=== PATIENT | male | born 1940 | race Caucasian/White ===

== ENCOUNTER 2016-12-28 15:32 | Emergency (ER) | payer OTHER ==
[2016-12-28 15:37] VITALS: BP 188/78; PULSE 85; TEMP 97.8; BMI 26.9
[2016-12-28] MEDS ORDERED: IBUPROFEN 600 MG TABLET (FP) PO ONE (16:16)
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
== END 2016-12-28 16:28 | disposition home or self-care (01) ==
LOC: JERFT 15:32
DX: S13.4XXA Sprain of ligaments of cervical spine, initial encounter (principal); S16.1XXA Strain of muscle, fascia and tendon at neck level, initial encounter; V43.52XA Car driver injured in collision with other type car in traffic accident, initial encounter; Y92.411 Interstate highway as the place of occurrence of the external cause; Y93.89 Activity, other specified; Y99.9 Unspecified external cause status; I10 Essential (primary) hypertension; E11.9 Type 2 diabetes mellitus without complications
CPT/HCPCS: 99281-25

== ENCOUNTER 2016-12-31 11:56 | Emergency (ER) | payer OTHER ==
[2016-12-31 12:01] VITALS: BP 182/75; PULSE 62; TEMP 97.7; BMI 26.9
[2016-12-31] MEDS ORDERED: KETOROLAC TROMETHAMINE 60 MG/2 ML VIAL IM ONE (12:26)
[2016-12-31] MEDS ORDERED: CYCLOBENZAPRINE HCL 10 MG TABLET (FP) PO ONE (12:29)
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
== END 2016-12-31 12:44 | disposition home or self-care (01) ==
LOC: JERFT 11:56
PROC: 3E0233Z Introduction of Anti-inflammatory into Muscle, Percutaneous Approach (ICD-10-PCS; principal; 2016-12-31)
DX: S13.4XXA Sprain of ligaments of cervical spine, initial encounter (principal); V43.52XA Car driver injured in collision with other type car in traffic accident, initial encounter; Y93.89 Activity, other specified; Y92.9 Unspecified place or not applicable; E11.9 Type 2 diabetes mellitus without complications; I10 Essential (primary) hypertension; E78.00 Pure hypercholesterolemia, unspecified
CPT/HCPCS: 99281-25

== ENCOUNTER 2018-06-26 09:55 | Inpatient (IN) | payer OTHER ==
[2018-06-26 10:00] VITALS: BMI 27.2
--- NOTE | 2018-06-26 10:17 | PDOC ---
History of Present Illness - General Chief Complaint: Weakness Stated Complaint: CVA/TIA Time Seen by Provider: 06/26/18 10:13 History Source: Patient, Family - History of Present Illness Initial Comments: 06/26/18 10:17 Patient is a 77-year-old male with past medical history of hypertension, hyperlipidemia, [id number] diabetes, who presents to the emergency department today after having an episode of weakness. Family states that around 8 AM he slurred his words and was having trouble buttoning his shirt with his left side. They also noticed that the patient was unsteady on his feet. They state that since arriving to the ER his symptoms have resolved. No past medical history of CVA. Patient states he still feels a little weak; however, overall he feels better. Denies fevers, chills, shortness of breath, chest pain, flulike symptoms, difficulty breathing, palpitations, nausea, vomiting, diarrhea , numbness, paresthesias. PCP: Dr. Tipton NIH Stroke Scale - Last Known Well Date/Time & Onset Date Last Known Well: 06/26/18 Time Last Known Well: 08:00 - Initial Evaluation Level of consciousness: Alert Ask patient the month and their age: Answers both correctly Ask patient to open & close eyes; make fist and let go: Obeys both correctly Best gaze (horizontal eye movement): Normal Visual field testing: No visual field loss Facial paresis (Show teeth/raise eyebrows/close eyes tight): Normal symmetrical movement Motor Function: Left Arm: Normal Motor Function: Right Arm: Normal (extends arm 90 (or 45) degrees for 10 seconds without drift Motor Function: Left Leg: Normal (extends leg 30 degrees for 5 seconds without drift) Motor Function: Right Leg: Normal (extends leg 30 degrees for 5 seconds without drift) Limb Ataxia: No ataxia Sensory(Use pinprick test arms,legs,trunk,face/side to side): Normal Best language (Describe picture, name items, read sentences): No Aphasia Dysarthria (read several words): Normal articulation Extinction and Inattention: No abnormality - Total Score NIH Stroke Scale Score: 0 Past History - Past Medical History Allergies/Adverse Reactions: Allergies Allergy/AdvReac Type Severity Reaction Status Date / Time No Known Allergies Allergy Verified 06/26/18 10:00 Home Medications: Ambulatory Orders Cyclobenzaprine HCl [Flexeril 10 mg] 10 mg PO BID PRN #14 tablet 12/31/16 COPD: No Diabetes: Yes HTN: Yes Hypercholesterolemia: Yes - Surgical History Abdominal Surgery: Yes (HERNIA) Appendectomy: Yes - Suicide/Smoking/Psychosocial Hx Smoking History: Never smoked Hx Alcohol Use: No Drug/Substance Use Hx: No Substance Use Type: None Review of Systems - Review of Systems Able to Perform ROS?: Yes Comments:: 06/26/18 14:44 CONSTITUTIONAL: Absent: fever, chills, diaphoresis, generalized weakness, malaise, loss of appetite HEENT: Absent: rhinorrhea, nasal congestion, throat pain, throat swelling, difficulty swallowing, mouth swelling, ear pain, eye pain, visual Changes CARDIOVASCULAR: Absent: chest pain, loss of consciousness, palpitations, irregular heart rate, peripheral edema RESPIRATORY: Absent: cough, shortness of breath, dyspnea with exertion, orthopnea, wheezing, stridor, hemoptysis GASTROINTESTINAL: Absent: abdominal pain, abdominal distension, nausea, vomiting, diarrhea, constipation, melena, hematochezia GENITOURINARY: Absent: dysuria, frequency, urgency, hesitancy, hematuria, flank pain, genital pain MUSCULOSKELETAL: Absent: myalgia, arthralgia, joint swelling SKIN: Absent: rash, itching, pallor HEMATOLOGIC/IMMUNOLOGIC: Absent: easy bleeding, easy bruising, lymphadenopathy, frequent infections ENDOCRINE: Absent: unexplained weight gain, unexplained weight loss, heat intolerance, cold intolerance NEUROLOGIC: Present: weakness Absent: headache, focal weakness or paresthesias, dizziness, unsteady gait, seizure, mental status changes, bladder or bowel incontinence PSYCHIATRIC: Absent: anxiety, depression, suicidal or homicidal ideation, hallucinations. Is the patient limited Burkinan proficient: No *Physical Exam - Vital Signs Last Vital Signs Temp Pulse Resp BP Pulse Ox 97.6 F 73 18 217/71 H 06/26/18 09:58 06/26/18 09:58 06/26/18 09:58 06/26/18 09:58 - Physical Exam Comments: 06/26/18 14:45 GENERAL: Well developed, well nourished. Awake and alert. No acute distress. HEENT: Normocephalic, atraumatic. PERRLA, EOMI. No conjunctival pallor. Sclera are non- icteric. Moist mucous membranes. Oropharynx is clear. NECK: Supple. Full ROM. No JVD. Carotid pulses 2+ and symmetric, without bruits. No thyromegaly. No lymphadenopathy. CARDIOVASCULAR: Regular rate and rhythm. No murmurs, rubs, or gallops. Distal pulses are 2+ and symmetric. PULMONARY: No evidence of respiratory distress. Lungs clear to auscultation bilaterally. No wheezing, rales or rhonchi. ABDOMINAL: Soft. Non-tender. Non-distended. No rebound or guarding. No organomegaly. Normoactive bowel sounds. MUSCULOSKELETAL Normal range of motion at all joints. No bony deformities or tenderness. No CVA tenderness. EXTREMITIES: No cyanosis. No clubbing. No edema. No calf tenderness. SKIN: Warm and dry. Normal capillary refill. No rashes. No jaundice. NEUROLOGICAL: Alert, awake, appropriate. Cranial nerves 2-12 intact. No deficits to light touch and temperature in face, upper extremities and lower extremities. No motor deficits in the in face, upper extremities and lower extremities. Normoreflexic in the upper and lower extremities. Normal speech. Toes are down- going bilaterally. Gait is normal without ataxia. PSYCHIATRIC: Cooperative. Good eye contact. Appropriate mood and affect. Moderate Sedation - Procedure Monitoring Vital Signs: Procedure Monitoring Vital Signs Temperature 97.6 F 06/26/18 09:58 Pulse Rate 73 06/26/18 09:58 Respiratory Rate 18 06/26/18 09:58 Blood Pressure 217/71 H 06/26/18 09:58 O2 Sat by Pulse Oximetry (%) ED Treatment Course - LABORATORY CBC & Chemistry Diagram: 06/26/18 10:20 06/26/18 10:20 Medical Decision Making - Medical Decision Making 06/26/18 14:53 Pt is a 77 y/o M with PMH of HTN, HLD, NIDDM, who presents to the ED with an episode of slurred speech and L sided weakness this morning. Triage vitals notable for a BP of 217/70. -On exam, no focal deficits; pt c/o headache otherwise asymptomatic -NIH stroke scale at this time is a 0 -Head CT shows no ischemia or bleed -H&H stable, no leukocytosis, troponin negative at this time -EKG: rate 69 BPM, NSR. Normal axis, normal intervals, ST elevation in lead II -Repeat BP 135/75 after labetolol -Given HPI and resolution of symptoms, suspect TIA -Admit for further stroke work up *DC/Admit/Observation/Transfer Diagnosis at time of Disposition: TIA (transient ischemic attack) - Discharge Dispostion Condition at time of disposition: Stable Decision to Admit order: Yes - Referrals - Patient Instructions - Post Discharge Activity
[2018-06-26] MEDS ORDERED: LABETALOL HCL 5 MG/1 ML (100MG/20 ML VIAL) IVPUSH ONE (10:23)
[2018-06-26] MEDS: SODIUM CHLORIDE 1,000 ML IV SCH (10:26)
[2018-06-26] MEDS ORDERED: LABETALOL HCL 5 MG/1 ML (100MG/20 ML VIAL) ONE (10:27)
[2018-06-26 11:10] LABS: BASO % 0.4 % (0-2.0); EOS % 0.4 % (0-4.5); HEMOGLOBIN 15.5 GM/dL (11.7-16.9); LYMPH % 40.3 % (8-40); MCH 31.8 pg (25.7-33.7); MCHC 35.2 g/dl (32.0-35.9); MEAN CELL VOLUME 90.4 fl (80-96); MEAN PLT VOLUME 10.1 fl (7.5-11.1); MONO % 6.3 % (3.8-10.2); NEUT % 52.6 % (42.8-82.8); PLATELET COUNT 174 K/MM3 (134-434); RBC 4.86 M/mm3 (4.00-5.60); RDW 14.2 % (11.9-15.9); WHITE BLOOD COUNT 9.8 K/mm3 (4.0-10.0)
[2018-06-26 11:20] LABS: INR 0.95 (0.83-1.09); PROTHROMBIN TIME (PATIENT) 11.2 SEC (9.7-13.0)
[2018-06-26 11:43] LABS: ALBUMIN 4.4 g/dl (3.4-5.0); ALK PHOS 132 U/L (45-117); ANION GAP 7 MMOL/L (8-16); BILIRUBIN,TOTAL 0.9 mg/dL (0.2-1); BLOOD UREA NITROGEN 21 mg/dL (7-18); CALCIUM 9.2 mg/dL (8.5-10.1); CHLORIDE 100 mmol/L (98-107); CHOLESTEROL 214 mg/dL (50-200); CO2 30 mmol/L (21-32); CREATININE 1.2 mg/dL (0.55-1.3); GLUCOSE,RANDOM 252 mg/dL (74-106); HDL CHOLESTEROL 44 mg/dL (40-60); SGOT/AST 23 U/L (15-37); SGPT/ALT 44 U/L (13-61); SODIUM 137 mmol/L (136-145); TOT PROT 7.8 g/dl (6.4-8.2); TRIGLYCERIDES 343 mg/dL (0-150)
[2018-06-26 11:52] LABS: URINE APPEARANCE CLEAR; URINE BILIRUBIN NEGATIVE (<2.0 mg/dL); URINE COLOR LTYELLOW; URINE GLUCOSE (UA) NEGATIVE (NEGATIVE); URINE KETONE NEGATIVE (NEGATIVE); URINE LEUK ESTERASE NEGATIVE (NEGATIVE); URINE NITRITE NEGATIVE (NEGATIVE); URINE PROTEIN NEGATIVE (NEGATIVE); URINE UROBILINOGEN NEGATIVE mg/dL (0.2-1.0)
--- NOTE | 2018-06-26 13:25 | EKG ---
Test Reason : Blood Pressure : / mmHG Vent. Rate : 069 BPM Atrial Rate : 069 BPM P-R Int : 188 ms QRS Dur : 092 ms QT Int : 394 ms P-R-T Axes : 072 -13 018 degrees QTc Int : 422 ms NORMAL SINUS RHYTHM POSSIBLE LEFT ATRIAL ENLARGEMENT SEPTAL INFARCT (CITED ON OR BEFORE 29-AUG-2010) ABNORMAL ECG WHEN COMPARED WITH ECG OF 29-AUG-2010 09:02, PREMATURE SUPRAVENTRICULAR COMPLEXES ARE NO LONGER PRESENT Confirmed by JUDE NIEVES MD ([id number]) on 06/26/2018 1:25:01 PM Referred By: Confirmed By:JUDE NIEVES MD
[2018-06-26] MEDS ORDERED: ASPIRIN/DIPYRIDAMOLE 25 MG/200 MG CAPSULE (FP) PO ONE (16:28)
[2018-06-26] MEDS ORDERED: ASPIRIN/DIPYRIDAMOLE 25 MG/200 MG CAPSULE (FP) ONE (16:42)
--- NOTE | 2018-06-26 17:27 | HP ---
CHIEF COMPLAINT: slurred speech, weakness PCP: n/a HISTORY OF PRESENT ILLNESS: Patient is a 77 year old male with a significant past medical history of hypertension, hyperlipidemia, and gye-xvohxkn-xmfiurplw diabetes. Patient presents today to the ED after having an episode of weakness, left hand numbness and slurred speech at around 8a.m. this morning. Patient reports that he was in his usual state of health yesterday and also overnight. However, this morning he was getting dressed when his noticed that the left side of his face was droopy along with slurred speech. Patient was also having trouble buttoning his short and felt weak on his left side, he also noted that his left hand was numb. Since presenting to the ED, his symptoms have since resolved and he feels that he is back to his baseline. Patient denies any history of TIAs or past CVAs. Patient further states that he has been having intermittent mid sternal chest pressure 8/10 that does not radiate. He reports that he had a recent echocardiogram last week with PCP, but does yet know the results of the echo. Denies fevers, chills, shortness of breath, chest pain, difficulty breathing, palpitations, nausea, vomiting, diarrhea, numbness, paresthesias. In the ED he was noted to have an elevated systolic BP in the 200s on admission. His EKG showed NSR with possible left atrial englargement. His Head CT was negative. ER course was notable for: (1) negative head ct (2) (3) Recent Travel: denies PAST MEDICAL HISTORY: hypertension, hyperlipidemia, and cqe-dputvvc-idzrzyzcz diabetes. PAST SURGICAL HISTORY: Social History: Smoking: n/a Alcohol: n/a Drugs: n/a Family History: Allergies No Known Allergies Allergy (Verified 06/26/18 10:00) HOME MEDICATIONS: Home Medications Medication Instructions Recorded Cyclobenzaprine HCl [Flexeril 10 10 mg PO BID PRN #14 tablet 12/31/16 mg] PHYSICAL EXAMINATION Vital Signs - 24 hr 06/26/18 06/26/18 06/26/18 09:58 13:13 15:18 Temperature 97.6 F 98.3 F 98.3 F Pulse Rate 73 Pulse Rate [ 82 80 Left Radial] Respiratory 18 20 20 Rate Blood Pressure 217/71 H Blood Pressure 135/80 123/75 [Left Arm] O2 Sat by Pulse 99 99 Oximetry (%) GENERAL: Awake, alert, and fully oriented, in no acute distress. HEAD: Normal with no signs of trauma. EYES: Pupils equal, round and reactive to light, extraocular movements intact EARS, NOSE, THROAT: Ears normal, nares patent, oropharynx clear without exudates. Moist mucous membranes. NECK: Normal range of motion, supple without lymphadenopathy, JVD, or masses. LUNGS: Breath sounds equal, clear to auscultation bilaterally. No wheezes, and no crackles. HEART: Regular rate and rhythm ABDOMEN: Soft, nontender, not distended, normoactive bowel sounds, no guarding, no rebound, no masses. No hepatomegaly or splenomegaly. MUSCULOSKELETAL: Normal range of motion at all joints. No bony deformities or tenderness. No CVA tenderness. UPPER EXTREMITIES: No peripheral edema. LOWER EXTREMITIES: No peripheral edema. NEUROLOGICAL: slow clear speech PSYCHIATRIC: Cooperative. Good eye contact. Appropriate mood and affect. SKIN: Warm, dry, normal turgor, no rashes or lesions noted, normal capillary refill. Laboratory Results - last 24 hr 06/26/18 06/26/18 06/26/18 10:20 10:20 10:20 WBC 9.8 RBC 4.86 Hgb 15.5 Hct 44.0 MCV 90.4 MCH 31.8 MCHC 35.2 RDW 14.2 Plt Count 174 MPV 10.1 Absolute Neuts (auto) 5.2 Neutrophils % 52.6 Lymphocytes % 40.3 H Monocytes % 6.3 Eosinophils % 0.4 Basophils % 0.4 Nucleated RBC % 0 PT with INR 11.20 INR 0.95 Sodium 137 Potassium 4.0 Chloride 100 Carbon Dioxide 30 Anion Gap 7 L BUN 21 H Creatinine 1.2 Creat Clearance w eGFR 58.40 POC Glucometer Random Glucose 252 H Calcium 9.2 Total Bilirubin 0.9 AST 23 ALT 44 Alkaline Phosphatase 132 H Creatine Kinase 119 Troponin I < 0.02 Total Protein 7.8 Albumin 4.4 Triglycerides 343 H Cholesterol 214 H Total LDL Cholesterol 118 H HDL Cholesterol 44 Urine Color Urine Appearance Urine pH Ur Specific [place] Urine Protein Urine Glucose (UA) Urine Ketones Urine Blood Urine Nitrite Urine Bilirubin Urine Urobilinogen Ur Leukocyte Esterase Influenza A (Rapid) Influenza B (Rapid) Blood Type Antibody Screen 06/26/18 06/26/18 06/26/18 10:20 10:20 11:32 WBC RBC Hgb Hct MCV MCH MCHC RDW Plt Count MPV Absolute Neuts (auto) Neutrophils % Lymphocytes % Monocytes % Eosinophils % Basophils % Nucleated RBC % PT with INR INR Sodium Potassium Chloride Carbon Dioxide Anion Gap BUN Creatinine Creat Clearance w eGFR POC Glucometer [phone] Random Glucose Calcium Total Bilirubin AST ALT Alkaline Phosphatase Creatine Kinase Troponin I Total Protein Albumin Triglycerides Cholesterol Total LDL Cholesterol HDL Cholesterol Urine Color Ltyellow Urine Appearance Clear Urine pH 6.0 Ur Specific [place] 1.008 L Urine Protein Negative Urine Glucose (UA) Negative Urine Ketones Negative Urine Blood Negative Urine Nitrite Negative Urine Bilirubin Negative Urine Urobilinogen Negative Ur Leukocyte Esterase Negative Influenza A (Rapid) Influenza B (Rapid) Blood Type O POSITIVE Antibody Screen Negative 06/26/18 11:32 WBC RBC Hgb Hct MCV MCH MCHC RDW Plt Count MPV Absolute Neuts (auto) Neutrophils % Lymphocytes % Monocytes % Eosinophils % Basophils % Nucleated RBC % PT with INR INR Sodium Potassium Chloride Carbon Dioxide Anion Gap BUN Creatinine Creat Clearance w eGFR POC Glucometer Random Glucose Calcium Total Bilirubin AST ALT Alkaline Phosphatase Creatine Kinase Troponin I Total Protein Albumin Triglycerides Cholesterol Total LDL Cholesterol HDL Cholesterol Urine Color Urine Appearance Urine pH Ur Specific [place] Urine Protein Urine Glucose (UA) Urine Ketones Urine Blood Urine Nitrite Urine Bilirubin Urine Urobilinogen Ur Leukocyte Esterase Influenza A (Rapid) Negative Influenza B (Rapid) Negative Blood Type Antibody Screen ASSESSMENT/PLAN: Patient is a 77 year old male with a significant past medical history of hypertension, hyperlipidemia, and [id number] diabetes. Patient presents today to the ED after having an episode of weakness, left hand numbness and slurred speech at around 8a.m. this morning. Patient further states that he has been having intermittent mid sternal chest pressure 8/10 that does not radiate. He reports that he had a recent echocardiogram last week with PCP, but does yet know the results of the echo. In the ED he was noted to have an elevated systolic BP in the 200s on admission. His EKG showed NSR with possible left atrial englargement. His Head CT was negative. Neuro Rule out TIA Head CT negative Systolic BP elevated on presentation to the ED Monitor on tele lipid panel elevated Patient given Aggrenox in the ED Neuro consulted Card: Chest pain Hypertension Trend troponins EkG shows nsr with possible left atrial enlargement Cardiology consulted echo ordered Hyperlipidemia Risk factors for stroke On Stain therapy at home, verbalizes compliance Add triplix Endocrine: diabetes. [id number] in a.m. hold metformin, on novolog fen PO intake monitor electrolytes diabetic diet Prophy: ambulation physical therapy full code Visit type - Emergency Visit Emergency Visit: Yes ED Registration Date: 06/26/18 Care time: The patient presented to the Emergency Department on the above date and was hospitalized for further evaluation of their emergent condition. - New Patient This patient is new to me today: Yes Date on this admission: 06/26/18 - Critical Care Critical Care patient: No
[2018-06-26] MEDS ORDERED: ACETAMINOPHEN 325 MG TABLET (FP) PO PRN (21:53)
[2018-06-26] MEDS ORDERED: ATORVASTATIN CA 80 MG TABLET (FP) PO SCH (22:00)
[2018-06-26] MEDS: INSULIN SLIDING SCALE (NOVOLOG) 1 VIAL SQ SCH (23:30)
[2018-06-27] MEDS ORDERED: ATORVASTATIN CA 40 MG TABLET (FP) ONE (00:34)
[2018-06-27] MEDS: ATORVASTATIN CA 40 MG TABLET (FP) PO SCH ×2 (01:00→21:19)
[2018-06-27] MEDS: CILOSTAZOL 50 MG TABLET (FP) PO SCH ×3 (01:00→21:19)
[2018-06-27] MEDS ORDERED: HEMOQUE TEST 1 EACH EACH ONE (03:19)
[2018-06-27 07:06] LABS: BASO % 0.8 % (0-2.0); EOS % 0.6 % (0-4.5); HEMATOCRIT 45.2 % (35.4-49); HEMOGLOBIN 14.8 GM/dL (11.7-16.9); LYMPH % 40.8 % (8-40); MCH 30.2 pg (25.7-33.7); MCHC 32.9 g/dl (32.0-35.9); MEAN CELL VOLUME 91.8 fl (80-96); MEAN PLT VOLUME 11.4 fl (7.5-11.1); MONO % 6.6 % (3.8-10.2); NEUT % 51.2 % (42.8-82.8); PLATELET COUNT 142 K/MM3 (134-434); RBC 4.92 M/mm3 (4.00-5.60); RDW 14.3 % (11.9-15.9); WHITE BLOOD COUNT 12.2 K/mm3 (4.0-10.0)
[2018-06-27 08:20] LABS: ALBUMIN 3.6 g/dl (3.4-5.0); ALK PHOS 97 U/L (45-117); ANION GAP 9 MMOL/L (8-16); BILIRUBIN,TOTAL 0.8 mg/dL (0.2-1); BLOOD UREA NITROGEN 19 mg/dL (7-18); CALCIUM 8.9 mg/dL (8.5-10.1); CHLORIDE 102 mmol/L (98-107); CO2 26 mmol/L (21-32); CREATININE 1.1 mg/dL (0.55-1.3); GLUCOSE,RANDOM 168 mg/dL (74-106); MAGNESIUM 2.3 mg/dL (1.8-2.4); POTASSIUM 3.8 mmol/L (3.5-5.1); SGOT/AST 24 U/L (15-37); SGPT/ALT 38 U/L (13-61); SODIUM 137 mmol/L (136-145); TOT PROT 6.7 g/dl (6.4-8.2)
[2018-06-27] MEDS ORDERED: glipiZIDE 5 MG TABLET (FP) ONE (08:29)
[2018-06-27] MEDS ORDERED: TAMSULOSIN HCL 0.4 MG CAP ONE (08:29)
[2018-06-27] MEDS: INSULIN SLIDING SCALE (NOVOLOG) 1 VIAL SQ SCH ×4 (08:30→22:00)
[2018-06-27] MEDS: glipiZIDE 10 MG TABLET (FP) PO SCH (08:30)
[2018-06-27] MEDS: TAMSULOSIN HCL 0.4 MG CAP PO SCH (08:30)
[2018-06-27] MEDS ORDERED: INSULIN (NOVOLOG) ASPART 100 UNITS/ML 10ML VIAL ONE (08:35)
--- NOTE | 2018-06-27 09:51 | PN ---
Physical Exam: SUBJECTIVE: Patient seen and examined at the bedside. awaiting bed in tele icu. patient denies any overnight malaise, headaches or dizziness. denies chest pain OBJECTIVE: [id number] elevated @ 8.3. pt states he is at times non compliant with his glipizide and metformin elevated tsh await t3, t4 Vital Signs Period Temp Pulse Resp BP Sys/Church Pulse Ox Last 24 Hr 97.6 F-98.3 F 73-82 18-20 123-217/71-80 99-99 GENERAL: Awake, alert, and fully oriented, in no acute distress. HEAD: Normal with no signs of trauma. EYES: Pupils equal, round and reactive to light, extraocular movements intact EARS, NOSE, THROAT: Ears normal, nares patent, oropharynx clear without exudates. Moist mucous membranes. NECK: Normal range of motion, supple without lymphadenopathy, JVD, or masses. LUNGS: Breath sounds equal, clear to auscultation bilaterally. No wheezes, and no crackles. HEART: Regular rate and rhythm ABDOMEN: Soft, nontender, not distended, normoactive bowel sounds, no guarding, no rebound, no masses. No hepatomegaly or splenomegaly. MUSCULOSKELETAL: Normal range of motion at all joints. No bony deformities or tenderness. No CVA tenderness. UPPER EXTREMITIES: No peripheral edema. LOWER EXTREMITIES: No peripheral edema. NEUROLOGICAL: slow clear speech PSYCHIATRIC: Cooperative. Good eye contact. Appropriate mood and affect. SKIN: Warm, dry, normal turgor, no rashes or lesions noted, normal capillary refill. Laboratory Results - last 24 hr 06/26/18 06/26/18 06/26/18 10:20 10:20 10:20 WBC 9.8 RBC 4.86 Hgb 15.5 Hct 44.0 MCV 90.4 MCH 31.8 MCHC 35.2 RDW 14.2 Plt Count 174 MPV 10.1 Absolute Neuts (auto) 5.2 Neutrophils % 52.6 Lymphocytes % 40.3 H Monocytes % 6.3 Eosinophils % 0.4 Basophils % 0.4 Nucleated RBC % 0 PT with INR 11.20 INR 0.95 Sodium 137 Potassium 4.0 Chloride 100 Carbon Dioxide 30 Anion Gap 7 L BUN 21 H Creatinine 1.2 Creat Clearance w eGFR 58.40 POC Glucometer Random Glucose 252 H Hemoglobin A1c % Calcium 9.2 Magnesium Total Bilirubin 0.9 AST 23 ALT 44 Alkaline Phosphatase 132 H Creatine Kinase 119 Troponin I < 0.02 Total Protein 7.8 Albumin 4.4 Triglycerides 343 H Cholesterol 214 H Total LDL Cholesterol 118 H HDL Cholesterol 44 TSH Free T4 Urine Color Urine Appearance Urine pH Ur Specific [place] Urine Protein Urine Glucose (UA) Urine Ketones Urine Blood Urine Nitrite Urine Bilirubin Urine Urobilinogen Ur Leukocyte Esterase Influenza A (Rapid) Influenza B (Rapid) Blood Type Antibody Screen 06/26/18 06/26/18 06/26/18 10:20 10:20 11:32 WBC RBC Hgb Hct MCV MCH MCHC RDW Plt Count MPV Absolute Neuts (auto) Neutrophils % Lymphocytes % Monocytes % Eosinophils % Basophils % Nucleated RBC % PT with INR INR Sodium Potassium Chloride Carbon Dioxide Anion Gap BUN Creatinine Creat Clearance w eGFR POC Glucometer [phone] Random Glucose Hemoglobin A1c % Calcium Magnesium Total Bilirubin AST ALT Alkaline Phosphatase Creatine Kinase Troponin I Total Protein Albumin Triglycerides Cholesterol Total LDL Cholesterol HDL Cholesterol TSH Free T4 Urine Color Ltyellow Urine Appearance Clear Urine pH 6.0 Ur Specific [place] 1.008 L Urine Protein Negative Urine Glucose (UA) Negative Urine Ketones Negative Urine Blood Negative Urine Nitrite Negative Urine Bilirubin Negative Urine Urobilinogen Negative Ur Leukocyte Esterase Negative Influenza A (Rapid) Influenza B (Rapid) Blood Type O POSITIVE Antibody Screen Negative 06/26/18 06/27/18 06/27/18 11:32 06:05 06:05 WBC 12.2 H RBC 4.92 Hgb 14.8 Hct 45.2 MCV 91.8 MCH 30.2 MCHC 32.9 RDW 14.3 Plt Count 142 MPV 11.4 H D Absolute Neuts (auto) 6.2 Neutrophils % 51.2 Lymphocytes % 40.8 H Monocytes % 6.6 Eosinophils % 0.6 Basophils % 0.8 Nucleated RBC % 0 PT with INR INR Sodium 137 Potassium 3.8 Chloride 102 Carbon Dioxide 26 Anion Gap 9 BUN 19 H Creatinine 1.1 Creat Clearance w eGFR > 60 POC Glucometer Random Glucose 168 H Hemoglobin A1c % Calcium 8.9 Magnesium 2.3 Total Bilirubin 0.8 AST 24 ALT 38 Alkaline Phosphatase 97 Creatine Kinase Troponin I < 0.02 Total Protein 6.7 Albumin 3.6 Triglycerides Cholesterol Total LDL Cholesterol HDL Cholesterol TSH 5.94 H Free T4 1.03 Urine Color Urine Appearance Urine pH Ur Specific [place] Urine Protein Urine Glucose (UA) Urine Ketones Urine Blood Urine Nitrite Urine Bilirubin Urine Urobilinogen Ur Leukocyte Esterase Influenza A (Rapid) Negative Influenza B (Rapid) Negative Blood Type Antibody Screen 06/27/18 06:05 WBC RBC Hgb Hct MCV MCH MCHC RDW Plt Count MPV Absolute Neuts (auto) Neutrophils % Lymphocytes % Monocytes % Eosinophils % Basophils % Nucleated RBC % PT with INR INR Sodium Potassium Chloride Carbon Dioxide Anion Gap BUN Creatinine Creat Clearance w eGFR POC Glucometer Random Glucose Hemoglobin A1c % 8.5 H Calcium Magnesium Total Bilirubin AST ALT Alkaline Phosphatase Creatine Kinase Troponin I Total Protein Albumin Triglycerides Cholesterol Total LDL Cholesterol HDL Cholesterol TSH Free T4 Urine Color Urine Appearance Urine pH Ur Specific [place] Urine Protein Urine Glucose (UA) Urine Ketones Urine Blood Urine Nitrite Urine Bilirubin Urine Urobilinogen Ur Leukocyte Esterase Influenza A (Rapid) Influenza B (Rapid) Blood Type Antibody Screen Active Medications Generic Name Dose Route Start Last Admin Trade Name Freq PRN Reason Stop Dose Admin Acetaminophen 650 mg 06/26/18 21:53 Tylenol - PO Q6H PRN HEADACHE Amlodipine Besylate 10 mg 06/27/18 10:00 Norvasc - PO DAILY [facility] Aspirin 81 mg 06/27/18 10:00 Asa - PO DAILY [facility] Atorvastatin Calcium 40 mg 06/26/18 22:00 06/27/18 01:00 Lipitor - PO 40 mg HS DON Administration Cilostazol 50 mg 06/26/18 22:00 06/27/18 01:00 Pletal - PO 50 mg BID DON Administration Fenofibric Acid 45 mg 06/27/18 10:00 Trilipix - PO DAILY [facility] Glipizide 10 mg 06/27/18 07:00 06/27/18 08:30 Glucotrol - PO 10 mg DAILY@0700 DON Administration Hydrochlorothiazide 25 mg 06/27/18 10:00 Hctz - PO DAILY [facility] Sodium Chloride 1,000 mls @ 42 mls/hr 06/26/18 10:30 06/26/18 10:26 Normal Saline - IV 42 mls/hr ASDIR DON Administration Insulin Aspart 1 vial 06/26/18 22:00 06/27/18 08:30 Novolog Vial Sliding Scale - SQ 2 unit ACHS DON Administration Protocol Isosorbide Mononitrate 30 mg 06/27/18 10:00 Imdur - PO DAILY [facility] Tamsulosin HCl 0.4 mg 06/27/18 08:30 06/27/18 08:30 Flomax - PO 0.4 mg DAILY@0830 [facility] Administration ASSESSMENT/PLAN: Patient is a 77 year old male with a significant past medical history of hypertension, hyperlipidemia, and [id number] diabetes. Patient presents to the ED after having an episode of weakness, left hand numbness and slurred speech at home. Patient further states that he has been having intermittent mid sternal chest pressure 8/10 that does not radiate. He reports that he had a recent echocardiogram last week with PCP, but does yet know the results of the echo. In the ED he was noted to have an elevated systolic BP in the 200s on admission. His EKG showed NSR with possible left atrial englargement. His Head CT was negative. Neuro Rule out TIA Head CT negative, will order brain mri per neuro recommendations Systolic BP elevated on presentation to the ED, now has normalized. would continue to monitor on tele. lipid panel elevated, started on triplix Patient given Aggrenox in the ED, will continue BID Neuro consulted and following Card: Chest pain, resolved Hypertension, improved troponins negative EkG shows nsr with possible left atrial enlargement Cardiology consulted echo ordered Hyperlipidemia On Stain therapy at home, verbalizes compliance Add triplix for elevated lipid panel here. Endocrine: diabetes. [id number] 8.5%. patient states he is at times non compliant with diabetic meds at home. Continue Novolog SS. Will need outpatient follow up for possible start of insulin. fen PO intake monitor electrolytes diabetic diet Prophy: ambulation physical therapy full code Visit type - Emergency Visit Emergency Visit: Yes ED Registration Date: 06/26/18 Care time: The patient presented to the Emergency Department on the above date and was hospitalized for further evaluation of their emergent condition. - New Patient This patient is new to me today: No - Critical Care Critical Care patient: No - Discharge Referral Referred to [facility] No
[2018-06-27] MEDS ORDERED: ASPIRIN 81 MG CHEWABLE TABLETS PO SCH (10:00)
[2018-06-27] MEDS: amLODIPine BESYLATE 10 MG TABLET (FP) PO SCH (13:22)
[2018-06-27] MEDS: HYDROCHLOROTHIAZIDE 25 MG TABLET (FP) PO SCH (13:22)
[2018-06-27] MEDS: ISOSORBIDE MONONITRATE 30 MG TAB.SR.24H (FP) PO SCH (13:22)
[2018-06-27] MEDS: FENOFIBRIC ACID 45 MG CAP PO SCH (13:22)
[2018-06-27] MEDS: SODIUM CHLORIDE 1,000 ML IV SCH (13:25)
--- NOTE | 2018-06-27 14:18 | CON.NEURO ---
Consult Consult Specialty:: Denis neurology Referred by:: emergency room - History of Present Illness History of Present Illness: 77-year-old right-handed pleasant man with history of Coronary artery disease Osteoarthritis Hypertension Hyperlipidemia Patient was at his usual status of health until yesterday 8:00 when he had sudden onset of difficulty expressing himself noted by the family and left sided weakness with left facial droop. It started at 8:00 in the morning by the time he came to the emergency room patient symptoms were completely resolved. Patient was not a candidate for TPA. Patient was not a candidate for thrombolysis. Patient was stabilized CAT scan of the head revealed no evidence of acute pathology. Patient was on aspirin and we change the medication to Aggrenox. Since observation the emergency room no recurrence of the symptoms I so the patient emergency room NIH stroke scale is 0. - History Source History Provided By: Patient Limitations to Obtaining History: No Limitations - Alcohol/Substance Use Hx Alcohol Use: No - Smoking History Smoking history: Never smoked Home Medications - Allergies Allergies/Adverse Reactions: Allergies Allergy/AdvReac Type Severity Reaction Status Date / Time No Known Allergies Allergy Verified 06/26/18 10:00 - Home Medications Home Medications: Ambulatory Orders Cyclobenzaprine HCl [Flexeril 10 mg] 10 mg PO BID PRN #14 tablet 12/31/16 Family Disease History - Family Disease History Family History: Denies (stroke) Review of Systems - Review of Systems Constitutional: reports: No Symptoms Eyes: reports: No Symptoms HENT: reports: No Symptoms Neurological: reports: Headache, Incoordination, Parasthesia Physical Exam-Neuro Vital Signs: Vital Signs Temperature 98.2 F 06/27/18 07:55 Pulse Rate 80 06/27/18 12:13 Respiratory Rate 18 06/27/18 12:13 Blood Pressure 148/80 06/27/18 12:13 O2 Sat by Pulse Oximetry (%) 100 06/27/18 07:55 Constitutional: Yes: Well Nourished Neck: Yes: WNL Labs: CBC, BMP 06/27/18 06:05 06/27/18 06:05 INR, PTT INR 0.95 (0.83-1.09) 06/26/18 10:20 - Neuro Exam Level Of Consciousness: Yes: Oriented to Person, Oriented to Place, Oriented to Time Eyes: Yes: PERRLA Speech: WNL Dominant Hand: Right Cranial Nerves II-XII Intact: Yes Gag: Present DTR's: 1+ Left Bicep, 1+ Right Bicep, 1+ Left Brachioradialis, 1+ Right Brachioradialis Response to light touch: Normal Response to pain prick: Normal Response to temperature: Normal Motor Strength: 3/5: Left Arm, Right Arm, Left Leg, Right Leg Gait: Deferred NIH Stroke Scale - Last Known Well Date/Time & Onset Date Last Known Well: 06/26/18 Time Last Known Well: 08:00 - Initial Evaluation Level of consciousness: Alert Ask patient the month and their age: Answers both correctly Ask patient to open & close eyes; make fist and let go: Obeys both correctly Best gaze (horizontal eye movement): Normal Visual field testing: No visual field loss Facial paresis (Show teeth/raise eyebrows/close eyes tight): Normal symmetrical movement Motor Function: Left Arm: Normal Motor Function: Right Arm: Normal (extends arm 90 (or 45) degrees for 10 seconds without drift Motor Function: Left Leg: Normal (extends leg 30 degrees for 5 seconds without drift) Motor Function: Right Leg: Normal (extends leg 30 degrees for 5 seconds without drift) Limb Ataxia: No ataxia Sensory(Use pinprick test arms,legs,trunk,face/side to side): Normal Best language (Describe picture, name items, read sentences): No Aphasia Dysarthria (read several words): Normal articulation Extinction and Inattention: No abnormality - Total Score NIH Stroke Scale Score: 0 Imaging - Results Cat Scan: Image Reviewed Problem List - Problems (1) TIA (transient ischemic attack) Assessment/Plan: mild ischemic attack in the 77-year-old with a history of hypertension uncontrolled Hypertension urgency Risk of having stroke is 8% in the first 3 months. 1. Neuro checks every 1 hour. 2. Follow-up with cardiology regarding chest pain. 3. Holter monitor. 4. MRI of the brain without contrast. 5. SCDs. 6. Carotid Doppler. 7. Aggrenox twice daily. 8. Speech and swallow evaluation. 9. Physical therapy. 10. Tight cholesterol control. 11. Stroke education with low salt intake. 12. Tight blood pressure control with a target mean arterial pressure around 110. Thank you very much for allowing me to be part of this patient's neurological care. Code(s): G45.9 - TRANSIENT CEREBRAL ISCHEMIC ATTACK, UNSPECIFIED
--- NOTE | 2018-06-27 17:38 | CON.CARD ---
Consult Consult Specialty:: Cardiology Reason for Consultation:: Chest pain - History of Present Illness Chief Complaint: Chest pain History of Present Illness: This is a 77 year old male with a PMH of hypertension, hyperlipidemia, and non- insulin-dependent diabetes. He presents to the ED with an episode of weakness. As per his family, around 8 AM he slurred his words and was having trouble buttoning his shirt with his left side. They also noticed that the patient was unsteady on his feet. They state that since arriving to the ER his symptoms have resolved. No past history of CVA. He states that he has been having intermittent mid sternal chest pressure 8/10 that does not radiate. He reports that he had a recent echocardiogram last week with PCP. EKG NSR no acute changes. Troponin negative x2 - Alcohol/Substance Use Hx Alcohol Use: No - Smoking History Smoking history: Never smoked Home Medications - Allergies Allergies/Adverse Reactions: Allergies Allergy/AdvReac Type Severity Reaction Status Date / Time No Known Allergies Allergy Verified 06/26/18 10:00 - Home Medications Home Medications: Ambulatory Orders Cyclobenzaprine HCl [Flexeril 10 mg] 10 mg PO BID PRN #14 tablet 12/31/16 Vital Signs: Vital Signs Temperature 98.2 F 06/27/18 07:55 Pulse Rate 80 06/27/18 12:13 Respiratory Rate 18 06/27/18 12:13 Blood Pressure 148/80 06/27/18 12:13 O2 Sat by Pulse Oximetry (%) 100 06/27/18 07:55 Constitutional: Yes: No Distress Eyes: Yes: WNL HENT: Yes: WNL Neck: Yes: WNL Respiratory: Yes: CTA Bilaterally Gastrointestinal: Yes: Normal Bowel Sounds Cardiovascular: Yes: Regular Rate and Rhythm Heart Sounds: Yes: S1, S2 (No MRHG) Edema: No Neurological: Yes: Alert, Oriented - Other Data Labs, Other Data: CBC, BMP 06/27/18 06:05 06/27/18 06:05 INR, PTT INR 0.95 (0.83-1.09) 06/26/18 10:20 Troponin, BNP 06/27/18 06:05 Troponin I < 0.02 Troponin, BNP 06/27/18 06:05 Troponin I < 0.02 Assessment/Plan 77 year old male with a PMH of hypertension, hyperlipidemia, and non-insulin- dependent diabetes. He presents to the ED with an episode of weakness. As per his family, around 8 AM he slurred his words and was having trouble buttoning his shirt with his left side. They also noticed that the patient was unsteady on his feet. They state that since arriving to the ER his symptoms have resolved. No past history of CVA. Also states that he has been having intermittent mid sternal chest pressure 8/ 10 that does not radiate. He reports that he had a recent echocardiogram last week with PCP. EKG NSR no acute changes. Troponin negative x2 Chest Pain Presently CP free Would not have him do a cardiac stress test after a TIA Would opt for an outpatient stress test in several weeks. Continue Statin and BP meds Would add aspirin is no contraindication Try to obtain the recent echocardiogram results
[2018-06-27] MEDS ORDERED: ASPIRIN/DIPYRIDAMOLE 25 MG/200 MG CAPSULE (FP) ONE (21:10)
[2018-06-27] MEDS: ASPIRIN/DIPYRIDAMOLE 25 MG/200 MG CAPSULE (FP) PO SCH (21:19)
[2018-06-28] MEDS ORDERED: glipiZIDE 5 MG TABLET (FP) ONE (06:06)
[2018-06-28] MEDS: INSULIN SLIDING SCALE (NOVOLOG) 1 VIAL SQ SCH ×3 (06:26→16:52)
[2018-06-28] MEDS: glipiZIDE 10 MG TABLET (FP) PO SCH (06:26)
[2018-06-28] MEDS ORDERED: INSULIN SLIDING SCALE (NOVOLOG) 1 VIAL SQ ONE (06:33)
[2018-06-28] MEDS ORDERED: PT OWN MED DRAWER 7, Y5N ONE ×2 (09:24→10:25)
[2018-06-28 09:29] LABS: BASO % 0.4 % (0-2.0); EOS % 0.6 % (0-4.5); HEMATOCRIT 41.5 % (35.4-49); HEMOGLOBIN 13.8 GM/dL (11.7-16.9); LYMPH % 36.5 % (8-40); MCH 30.1 pg (25.7-33.7); MCHC 33.2 g/dl (32.0-35.9); MEAN CELL VOLUME 90.7 fl (80-96); MEAN PLT VOLUME 10.1 fl (7.5-11.1); NEUT % 56.5 % (42.8-82.8); PLATELET COUNT 155 K/MM3 (134-434); RBC 4.58 M/mm3 (4.00-5.60); RDW 13.9 % (11.9-15.9); WHITE BLOOD COUNT 9.1 K/mm3 (4.0-10.0)
[2018-06-28 09:52] LABS: ALBUMIN 3.7 g/dl (3.4-5.0); ALK PHOS 102 U/L (45-117); ANION GAP 7 MMOL/L (8-16); BILIRUBIN,TOTAL 0.9 mg/dL (0.2-1); BLOOD UREA NITROGEN 14 mg/dL (7-18); CHLORIDE 107 mmol/L (98-107); CO2 28 mmol/L (21-32); CREATININE 1.1 mg/dL (0.55-1.3); GLUCOSE,RANDOM 136 mg/dL (74-106); POTASSIUM 3.8 mmol/L (3.5-5.1); SGOT/AST 20 U/L (15-37); SGPT/ALT 35 U/L (13-61); SODIUM 142 mmol/L (136-145); TOT PROT 6.6 g/dl (6.4-8.2)
[2018-06-28] MEDS: amLODIPine BESYLATE 10 MG TABLET (FP) PO SCH (10:07)
[2018-06-28] MEDS: HYDROCHLOROTHIAZIDE 25 MG TABLET (FP) PO SCH (10:07)
[2018-06-28] MEDS: ASPIRIN/DIPYRIDAMOLE 25 MG/200 MG CAPSULE (FP) PO SCH (10:07)
[2018-06-28] MEDS: ISOSORBIDE MONONITRATE 30 MG TAB.SR.24H (FP) PO SCH (10:07)
[2018-06-28] MEDS: TAMSULOSIN HCL 0.4 MG CAP PO SCH (10:08)
[2018-06-28] MEDS: CILOSTAZOL 50 MG TABLET (FP) PO SCH (10:09)
[2018-06-28] MEDS: FENOFIBRIC ACID 45 MG CAP PO SCH (10:09)
--- NOTE | 2018-06-28 12:19 | EKG ---
Test Reason : Blood Pressure : / mmHG Vent. Rate : 064 BPM Atrial Rate : 064 BPM P-R Int : 218 ms QRS Dur : 086 ms QT Int : 416 ms P-R-T Axes : 070 -15 -45 degrees QTc Int : 429 ms SINUS RHYTHM WITH 1ST DEGREE A-V BLOCK SEPTAL INFARCT (CITED ON OR BEFORE 29-AUG-2010) ABNORMAL ECG WHEN COMPARED WITH ECG OF 26-JUN-2018 10:26, T WAVE VARIATION Confirmed by ESCOBAR CONRAD MD ([id number]) on 06/28/2018 12:19:35 PM Referred By: Axel WALLACE Confirmed By:ESCOBAR CONRAD MD
[2018-06-28 14:32] VITALS: BP 142/50; PULSE 80; TEMP 97.8
--- NOTE | 2018-06-28 17:34 | DS ---
Physical Exam: SUBJECTIVE: Patient seen and examined at the bedside. OBJECTIVE: brain mri findings discussed with Dr. Mccord who recommends Aggrenox bid, stop ASA and follow up in 2 weeks with neurlogist. Vital Signs Period Temp Pulse Resp BP Sys/Church Pulse Ox Last 24 Hr 97.7 F-98.2 F 70-80 16-18 101-161/50-76 97-100 PHYSICAL EXAM GENERAL: Awake, alert, and fully oriented, in no acute distress. HEAD: Normal with no signs of trauma. EYES: Pupils equal, round and reactive to light, extraocular movements intact EARS, NOSE, THROAT: Ears normal, nares patent, oropharynx clear without exudates. Moist mucous membranes. NECK: Normal range of motion, supple without lymphadenopathy, JVD, or masses. LUNGS: Breath sounds equal, clear to auscultation bilaterally. No wheezes, and no crackles. HEART: Regular rate and rhythm ABDOMEN: Soft, nontender, not distended, normoactive bowel sounds, no guarding, no rebound, no masses. No hepatomegaly or splenomegaly. MUSCULOSKELETAL: Normal range of motion at all joints. No bony deformities or tenderness. No CVA tenderness. UPPER EXTREMITIES: No peripheral edema. LOWER EXTREMITIES: No peripheral edema. NEUROLOGICAL: slow clear speech PSYCHIATRIC: Cooperative. Good eye contact. Appropriate mood and affect. SKIN: Warm, dry, normal turgor, no rashes or lesions noted, normal capillary refill. LABS Laboratory Results - last 24 hr 06/27/18 06/27/18 06/27/18 09:17 17:55 21:20 WBC RBC Hgb Hct MCV MCH MCHC RDW Plt Count MPV Absolute Neuts (auto) Neutrophils % Lymphocytes % Monocytes % Eosinophils % Basophils % Nucleated RBC % Sodium Potassium Chloride Carbon Dioxide Anion Gap BUN Creatinine Creat Clearance w eGFR POC Glucometer 123 Random Glucose Calcium Total Bilirubin AST ALT Alkaline Phosphatase Troponin I < 0.02 Total Protein Albumin Free T3 2.5 06/27/18 06/28/18 06/28/18 21:37 05:53 08:50 WBC 9.1 RBC 4.58 Hgb 13.8 Hct 41.5 MCV 90.7 MCH 30.1 MCHC 33.2 RDW 13.9 Plt Count 155 MPV 10.1 D Absolute Neuts (auto) 5.1 Neutrophils % 56.5 Lymphocytes % 36.5 Monocytes % 6.0 Eosinophils % 0.6 Basophils % 0.4 Nucleated RBC % 0 Sodium Potassium Chloride Carbon Dioxide Anion Gap BUN Creatinine Creat Clearance w eGFR POC Glucometer 191 160 Random Glucose Calcium Total Bilirubin AST ALT Alkaline Phosphatase Troponin I Total Protein Albumin Free T3 06/28/18 06/28/18 06/28/18 08:50 11:20 16:49 WBC RBC Hgb Hct MCV MCH MCHC RDW Plt Count MPV Absolute Neuts (auto) Neutrophils % Lymphocytes % Monocytes % Eosinophils % Basophils % Nucleated RBC % Sodium 142 Potassium 3.8 Chloride 107 Carbon Dioxide 28 Anion Gap 7 L BUN 14 Creatinine 1.1 Creat Clearance w eGFR > 60 POC Glucometer 163 125 Random Glucose 136 H Calcium 9.0 Total Bilirubin 0.9 AST 20 ALT 35 Alkaline Phosphatase 102 Troponin I Total Protein 6.6 Albumin 3.7 Free T3 HOSPITAL COURSE: Patient is a 77 year old male with a significant past medical history of hypertension, hyperlipidemia, and [id number] diabetes. Patient presents to the ED after having an episode of weakness, left hand numbness and slurred speech at home. Patient further states that he has been having intermittent mid sternal chest pressure 8/10 that does not radiate. He reports that he had a recent echocardiogram last week with PCP, but does yet know the results of the echo. In the ED he was noted to have an elevated systolic BP in the 200s on admission. His EKG showed NSR with possible left atrial englargement. His Head CT was negative. Imaging Brain MRI 06.28.18: brain mri shows 2 small punctate non hemorrhagic infarcations in the white matter of the right and left frontal lobe. ischemic changes in the white matter of both cerebral hemisphere in periventicular distribution sequela most prob. to long standing htn Neuro Rule out TIA/CVA Head CT negative, brain mri shows acute non hemorrhagic infarctions. Systolic BP elevated on presentation to the ED, now has normalized. lipid panel elevated, started on triplix, on statin therapy Will discharge home with Aggrenox BID with close neuro follow up. patient and agree to f/u in 2 weeks. Patient ambulates without difficulty, no trouble swallowing Neuro follow up outpatient Card: Chest pain, resolved Hypertension, improved troponins negative EkG shows nsr with possible left atrial enlargement Cardiology consulted, stress test outpatient echo done last week as an outpatient, pt to follow up with his pcp. Hyperlipidemia On Stain therapy at home, verbalizes compliance Add triplix for elevated lipid panel here. Endocrine: diabetes. [id number] 8.5%. patient states he is at times non compliant with diabetic meds at home. Continue Novolog SS. Will need outpatient follow up for possible start of insulin. repeat tsh outpatient, t4, t3 normal. Date of Admission:06/26/18 Date of Discharge: 06/28/18 Minutes to complete discharge: 60 Discharge Summary Reason For Visit: TRANSIENT ISCHEMIC ATTACH/ CVA/TIA Current Active Problems TIA (transient ischemic attack) (Acute) Condition: Fair - Instructions Diet, Activity, Other Instructions: Mr. Love: You were found to have an acute stroke as seen on brain MRI. We started you on Aggrenox. Aggrenox is a medication that can prevent further strokes. It is important that you see your primary care doctor to continue to monitor your blood pressure and blood sugars. Please see Dr. Mccord in 2 weeks. It is important that you follow with him. Please bring the results of your echocardigram with you on your visit with Dr. Mccord. Continue all your home medications: STOP taking the Aspirin NEW MEDICATIONS: START taking Aggrenox twice per day (for stroke prevention) TAKE AT 8AM AND 8PM START taking Lipitor 40mg daily (for high cholesterol) TAKE AT 8PM START taking Trplix daily (for high triglycerides) TAKE AT 8AM Continue all your other home medications. It is important that you continue taking the Metformin and Glipizide as your blood sugars were elevated. Please do not skip your Glipizide or Metformin. Please call me with any questions that you may have Isabel Roche NP [facility] @ [facility] [phone] Referrals: Lakhwinder Mckeon MD [Staff Physician] - Ignacio Mccord MD [Staff Physician] - 2 Weeks Disposition: HOME - Home Medications Comprehensive Discharge Medication List: Ambulatory Orders Cyclobenzaprine HCl [Flexeril 10 mg] 10 mg PO BID PRN #14 tablet 12/31/16 This patient is new to me today: No Emergency Visit: Yes ED Registration Date: 06/26/18 Care time: The patient presented to the Emergency Department on the above date and was hospitalized for further evaluation of their emergent condition. Critical Care patient: No - Discharge Referral Referred to [facility] No
--- NOTE | 2018-06-28 23:26 | CONSULT ---
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 - Smoking History Smoking history: Never smoked Have you smoked in the past 12 months: No - Alcohol/Substance Use Hx Alcohol Use: No - Social History Usual Living Arrangement: Yes: With Spouse ADL: Independent History - Admission Reason For Visit: TRANSIENT ISCHEMIC ATTACH/ CVA/TIA - General Mental Status: Alert and Oriented, Awake and Alert, Able to Follow Commands Attention: Intact Ability to Follow Directions: Good Head/Neck Control: WFL - Hearing Hearing: Functional Hearing: Normal Hearing Aide: No With Patient: No Speech Evaluation - Communication Primary Language: DUTCH (Able to speak and understand [place]) Communication: Yes: Within Normal Limits Oral Expression Ability: Yes: No Impairment - Speech Production Apraxia: No Able to Make Needs Known: Yes: WNL Intelligibility: Yes: WNL - Speech Characteristics Voice Loudness: Normal Voice Pitch: Yes: Normal Voice Phonatory-based Quality: Yes: Normal Speech Pattern: Normal Nasal Resonance: Normal Articulation: Yes: Precise Rate of Speech: Intact - Language/Auditory Comprehension Follows: Yes: 2 Stage Simple Commands Observation: Able to respond to yes/no queries: Yes, Yes/No Confusion: No, Comprehends Conversational Speech: Yes - Language/Verbal Expression Aphasia: Yes: Fluent Able to Respond to Simple Queries: Yes: WNL Able to Communicate Wants and Needs: Yes: WNL Functional Communication Status: Yes: WNL Attention: Yes: Intact - Memory/Perception detention Memory: Yes: WNL Short Term Memory: Yes: WNL - Swallow Evaluation/Bedside Assessment Current Nutritional Intake: Regular Oral Secretions: Yes: WFL Tracheostomy Present: No Patient on Ventilator: No Dentition: Yes: Adequate Facial Symmetry at Rest: Symmetrical Facial Symmetry on Retraction: Symmetrical Facial Movement: Controlled Sensation: Normal Jaw Position: Closed at Rest Against Resistance Opening: Normal Against Resistance Closing: Normal Pucker Lips: Normal Smile: Normal Lips, Comment: Within funcitonl limits. Lingual Movement: Normal Lingual Speed of Movement: Normal Lingual Movement Strgth Against Opposition: Normal Lingual Movement Characteristics: Normal Lingual Comment: Adequate volitional lingual movement. Soft Palate Description: Normal Color Hard Palate Description: Normal Color Gag Reflex: Strong Velopharyngeal Movement: Normal Laryngeal Elevation: WFL Laryngeal Movement: Able to Palpate Needs Assistance: No Rate of Intake: WFL Bolus Size: WFL Labial Seal: WFL Chewing: WFL Oral Prep Time: WFL A-P Transit: WFL Pocketing: None Timing of Swallow: WFL Coughing/Throat Clear: No Change in Voice: No Other Findings/Remarks: Swallow function judged within normal limits. No s/s of aspiration. Adequate bolus preparation and timely swallow trigger. Intact swallow for regular solids and thin liquids. Recommendations - Speech Evaluation, Impression/Plan Impression: Adequate swallow function for regular solids and thin liquids. Pt. shows no s/s of aspiration with adequate bolus preparation and timely swallow trigger. No intervention warranted at this time. - Disposition Discharge to: To be Determined - Dysphagia Impressions/Plan Swallowing Skills: WFL Dysphagia Impressions: No Impairment - Recommendations Diet Consistency: Regular Medication Administration: Whole with water Liquids: Thin Liquids
== END 2018-06-28 19:26 | disposition home or self-care (01) | DRG 69 ==
LOC: JER 09:55 → JERBED 16:23 → UNDOADMIN 16:37 → JERBED 16:37 → J4S 06-28 00:25
PROVIDERS: ADMIT Internal Medicine; ATTEND Nurse Practitioner Family
DX: G45.9 Transient cerebral ischemic attack, unspecified (principal); I10 Essential (primary) hypertension; E11.9 Type 2 diabetes mellitus without complications; E78.5 Hyperlipidemia, unspecified; R07.9 Chest pain, unspecified
CPT/HCPCS: 36415; 70450-TC; 70551-TC; 80053; 81003; 82465; 82550; 82962; 83036; 83718; 83721; 83735; 84439; 84443; 84478; 84481; 84484; 85025; 85610; 86850; 86900; 86901; 87804; 93005; 93010; 93306-TC; 93880-TC; 97116-GP; 97161-GP; 99285-25; J7030

== ENCOUNTER 2022-03-30 18:40 | Inpatient (IN) | payer OTHER ==
[2022-03-30 19:09] LABS: HEMATOCRIT 39.9 % (35.4-49); HEMOGLOBIN 14.2 G/dL (11.7-16.9); MCH 31.6 pg (25.7-33.7); MCHC 35.6 g/dl (32.0-35.9); MEAN CELL VOLUME 88.7 fl (80-96); MEAN PLT VOLUME 9.3 fl (7.5-11.1); PLATELET COUNT 190.3 10^3/uL (134-434); WHITE BLOOD COUNT 12.7 10^3/uL (4.0-10.8)
[2022-03-30 19:15] LABS: INR 1.02 (0.83-1.09); PROTHROMBIN TIME (PATIENT) 11.7 SEC (9.7-13.0)
[2022-03-30] MEDS ORDERED: NITROGLYCERIN SUBLINGUAL 1/150 0.4 MG TAB SL ONE ×3 (19:16→20:32)
[2022-03-30] MEDS ORDERED: CARVEDILOL 3.125 MG TABLET (FP) PO ONE (19:16)
[2022-03-30] MEDS ORDERED: LISINOPRIL 20 MG TABLET PO ONE (19:17)
[2022-03-30 19:20] LABS: ALBUMIN 4.1 g/dl (3.4-5.0); BILIRUBIN,TOTAL 0.8 mg/dl (0.2-1); CALCIUM 9.3 mg/dl (8.5-10); CREATININE 1.6 mg/dl (0.55-1.3); TOT PROT 7.1 g/dl (6.4-8.2)
[2022-03-30] MEDS ORDERED: NITROGLYCERIN SUBLINGUAL 1/150 0.4 MG TAB ONE ×3 (19:28→20:34)
[2022-03-30] MEDS ORDERED: LISINOPRIL 10 MG TABLET ONE (19:28)
[2022-03-30 19:43] LABS: URINE HYALINE CAST 0-2 /lpf
[2022-03-30] MEDS ORDERED: SODIUM CHLORIDE 0.9% 500 ML INFUS.BAG IV ONE (19:46)
[2022-03-30] MEDS ORDERED: ACETAMINOPHEN 1000 MG/100 ML BAG IVPB ONE (19:57)
[2022-03-30] MEDS ORDERED: ACETAMINOPHEN INJECTION 100 ML IVPB ONE (19:58)
[2022-03-30] MEDS ORDERED: amLODIPine BESYLATE 5 MG TABLET (FP) PO ONE (20:32)
[2022-03-30] MEDS ORDERED: amLODIPine BESYLATE 5 MG TABLET (FP) ONE (20:34)
[2022-03-30] MEDS ORDERED: DOCUSATE SODIUM 100 MG CAPSULE (FP) PO PRN (21:52)
[2022-03-30] MEDS ORDERED: ACETAMINOPHEN 325 MG TABLET (FP) PO PRN (21:52)
[2022-03-30] MEDS ORDERED: ASPIRIN 81 MG CHEWABLE TABLETS PO ONE (21:58)
[2022-03-30] MEDS: SODIUM CHLORIDE 1,000 ML IV SCH (22:59)
[2022-03-30] MEDS: INSULIN SLIDING SCALE (NOVOLOG) 1 VIAL SQ SCH (23:00)
[2022-03-31] MEDS: HEPARIN NA (PORCINE) 5,000 UNITS/ML 1ML VIAL SQ SCH ×3 (06:30→21:54)
[2022-03-31] MEDS: INSULIN SLIDING SCALE (NOVOLOG) 1 VIAL SQ SCH ×4 (06:30→21:54)
[2022-03-31 08:18] LABS: CALCIUM 9.3 mg/dl (8.5-10); CREATININE 1.2 mg/dl (0.55-1.3)
[2022-03-31 09:14] LABS: BASO % 0.4 % (0-2.0); EOS % 0.9 % (0-4.5); HEMATOCRIT 36.9 % (35.4-49); HEMOGLOBIN 12.4 GM/dL (11.7-16.9); LYMPH % 43.5 % (8-40); MCH 29.8 pg (25.7-33.7); MCHC 33.5 g/dl (32.0-35.9); MEAN CELL VOLUME 88.8 fl (80-96); MEAN PLT VOLUME 10.1 fl (7.5-11.1); MONO % 5.7 % (3.8-10.2); NEUT % 49.5 % (42.8-82.8); PLATELET COUNT 193 10^3/uL (134-434); RBC 4.16 M/mm3 (4.00-5.60); RDW 14.6 % (11.9-15.9); WHITE BLOOD COUNT 9.6 K/mm3 (4.0-10.0)
[2022-03-31] MEDS: ATORVASTATIN CA 40 MG TABLET (FP) PO SCH (09:15)
[2022-03-31] MEDS: TAMSULOSIN HCL 0.4 MG CAP PO SCH (09:15)
[2022-03-31] MEDS: LISINOPRIL 20 MG TABLET PO SCH (09:15)
[2022-03-31] MEDS ORDERED: CARVEDILOL 25 MG TABLET (FP) PO SCH (10:00)
[2022-03-31] MEDS ORDERED: amLODIPine BESYLATE 10 MG TABLET (FP) PO SCH (10:00)
[2022-03-31] MEDS ORDERED: hydrALAZINE HCL 20 MG/ML VIAL IVPUSH PRN (11:37)
[2022-03-31] MEDS: hydrALAZINE HCL 20 MG/ML VIAL IVPUSH PRN (12:22)
[2022-03-31] MEDS: hydrALAZINE HCL 25 MG TABLET (FP) PO SCH ×2 (13:52→21:54)
[2022-03-31] MEDS: CARVEDILOL 12.5 MG TABLET (FP) PO SCH (21:54)
[2022-04-01] MEDS: INSULIN SLIDING SCALE (NOVOLOG) 1 VIAL SQ SCH ×4 (06:32→21:21)
[2022-04-01] MEDS: HEPARIN NA (PORCINE) 5,000 UNITS/ML 1ML VIAL SQ SCH ×3 (06:33→21:20)
[2022-04-01] MEDS: SODIUM CHLORIDE 1,000 ML IV SCH (07:03)
[2022-04-01] MEDS: LISINOPRIL 20 MG TABLET PO SCH (09:04)
[2022-04-01] MEDS: CLOPIDOGREL BISULFATE 75 MG TABLET (FP) PO SCH (09:04)
[2022-04-01] MEDS: ATORVASTATIN CA 40 MG TABLET (FP) PO SCH (09:04)
[2022-04-01] MEDS: CARVEDILOL 12.5 MG TABLET (FP) PO SCH ×2 (09:04→21:20)
[2022-04-01] MEDS: ASPIRIN COATED 81 MG TABLET.EC PO SCH (09:04)
[2022-04-01] MEDS: hydrALAZINE HCL 50 MG TABLET (FP) PO SCH ×2 (09:04→21:20)
[2022-04-01] MEDS: TAMSULOSIN HCL 0.4 MG CAP PO SCH (09:04)
[2022-04-02] MEDS: SODIUM CHLORIDE 1,000 ML IV SCH (02:12)
[2022-04-02] MEDS: HEPARIN NA (PORCINE) 5,000 UNITS/ML 1ML VIAL SQ SCH ×3 (06:39→21:20)
[2022-04-02] MEDS: INSULIN SLIDING SCALE (NOVOLOG) 1 VIAL SQ SCH ×4 (06:40→21:23)
[2022-04-02] MEDS: CARVEDILOL 12.5 MG TABLET (FP) PO SCH ×2 (09:36→21:20)
[2022-04-02] MEDS: hydrALAZINE HCL 50 MG TABLET (FP) PO SCH ×2 (09:36→21:20)
[2022-04-02] MEDS: ATORVASTATIN CA 40 MG TABLET (FP) PO SCH (09:36)
[2022-04-02] MEDS: amLODIPine BESYLATE 5 MG TABLET (FP) PO SCH (09:36)
[2022-04-02] MEDS: CLOPIDOGREL BISULFATE 75 MG TABLET (FP) PO SCH (09:36)
[2022-04-02] MEDS: ASPIRIN COATED 81 MG TABLET.EC PO SCH (09:36)
[2022-04-02] MEDS: TAMSULOSIN HCL 0.4 MG CAP PO SCH (09:36)
[2022-04-02] MEDS: LISINOPRIL 20 MG TABLET PO SCH (09:36)
[2022-04-02 14:38] VITALS: BMI 25.3
[2022-04-03] MEDS: HEPARIN NA (PORCINE) 5,000 UNITS/ML 1ML VIAL SQ SCH ×3 (05:53→21:15)
[2022-04-03] MEDS: INSULIN SLIDING SCALE (NOVOLOG) 1 VIAL SQ SCH ×4 (06:00→21:16)
[2022-04-03] MEDS: amLODIPine BESYLATE 5 MG TABLET (FP) PO SCH (09:04)
[2022-04-03] MEDS: ASPIRIN COATED 81 MG TABLET.EC PO SCH (09:04)
[2022-04-03] MEDS: CARVEDILOL 12.5 MG TABLET (FP) PO SCH ×2 (09:04→21:15)
[2022-04-03] MEDS: ATORVASTATIN CA 40 MG TABLET (FP) PO SCH (09:04)
[2022-04-03] MEDS: LISINOPRIL 20 MG TABLET PO SCH (09:04)
[2022-04-03] MEDS: TAMSULOSIN HCL 0.4 MG CAP PO SCH (09:04)
[2022-04-03] MEDS: CLOPIDOGREL BISULFATE 75 MG TABLET (FP) PO SCH (09:04)
[2022-04-03] MEDS: hydrALAZINE HCL 50 MG TABLET (FP) PO SCH ×2 (13:43→21:15)
[2022-04-03 14:45] LABS: HEMATOCRIT 38.3 % (35.4-49); HEMOGLOBIN 13.1 GM/dL (11.7-16.9); MCH 30.3 pg (25.7-33.7); MCHC 34.1 g/dl (32.0-35.9); MEAN CELL VOLUME 88.9 fl (80-96); MEAN PLT VOLUME 9.3 fl (7.5-11.1); PLATELET COUNT 180 10^3/uL (134-434); RBC 4.31 M/mm3 (4.00-5.60); WHITE BLOOD COUNT 10.5 K/mm3 (4.0-10.0)
[2022-04-03 14:52] LABS: INR 1.01 (0.83-1.09); PROTHROMBIN TIME (PATIENT) 11.6 SEC (9.7-13.0)
[2022-04-03 15:12] LABS: ALBUMIN 3.6 g/dl (3.4-5.0); BLOOD UREA NITROGEN 26.1 mg/dL (7-18); CALCIUM 9.3 mg/dL (8.5-10.1); MAGNESIUM 2.4 mg/dL (1.8-2.4)
[2022-04-03 15:15] LABS: CREATININE 1.6 mg/dL (0.55-1.3); PHOSPHOROUS 3.4 mg/dL (2.5-4.9)
[2022-04-03 15:17] LABS: BILIRUBIN,TOTAL 0.7 mg/dL (0.2-1); TOT PROT 6.8 g/dl (6.4-8.2)
[2022-04-03] MEDS: hydrALAZINE HCL 20 MG/ML VIAL IVPUSH PRN (21:16)
[2022-04-04] MEDS: hydrALAZINE HCL 20 MG/ML VIAL IVPUSH PRN ×2 (05:43→17:06)
[2022-04-04] MEDS: hydrALAZINE HCL 50 MG TABLET (FP) PO SCH ×3 (05:44→22:23)
[2022-04-04] MEDS: HEPARIN NA (PORCINE) 5,000 UNITS/ML 1ML VIAL SQ SCH ×3 (05:44→22:24)
[2022-04-04] MEDS: INSULIN SLIDING SCALE (NOVOLOG) 1 VIAL SQ SCH ×4 (06:04→22:18)
[2022-04-04] MEDS ORDERED: hydrALAZINE HCL 20 MG/ML VIAL IVPUSH ONE (09:30)
[2022-04-04] MEDS: ASPIRIN COATED 81 MG TABLET.EC PO SCH (10:24)
[2022-04-04] MEDS: CARVEDILOL 12.5 MG TABLET (FP) PO SCH (10:24)
[2022-04-04] MEDS: LISINOPRIL 20 MG TABLET PO SCH (10:25)
[2022-04-04] MEDS: CLOPIDOGREL BISULFATE 75 MG TABLET (FP) PO SCH (10:25)
[2022-04-04] MEDS: ATORVASTATIN CA 40 MG TABLET (FP) PO SCH (10:25)
[2022-04-04] MEDS: TAMSULOSIN HCL 0.4 MG CAP PO SCH (10:25)
[2022-04-04] MEDS: amLODIPine BESYLATE 5 MG TABLET (FP) PO SCH (10:25)
[2022-04-04] MEDS ORDERED: LABETALOL HCL 5 MG/1 ML (100MG/20 ML VIAL) IVPUSH PRN (13:51)
[2022-04-04] MEDS ORDERED: amLODIPine BESYLATE 5 MG TABLET (FP) NGT SCH (14:40)
[2022-04-04] MEDS: CARVEDILOL 12.5 MG TABLET (FP) NGT SCH (22:24)
[2022-04-05] MEDS: hydrALAZINE HCL 20 MG/ML VIAL IVPUSH PRN ×3 (01:20→20:34)
[2022-04-05] MEDS: hydrALAZINE HCL 50 MG TABLET (FP) PO SCH (05:30)
[2022-04-05] MEDS: HEPARIN NA (PORCINE) 5,000 UNITS/ML 1ML VIAL SQ SCH ×3 (05:31→21:57)
[2022-04-05] MEDS: INSULIN SLIDING SCALE (NOVOLOG) 1 VIAL SQ SCH ×4 (06:02→21:58)
[2022-04-05] MEDS: CLOPIDOGREL BISULFATE 75 MG TABLET (FP) PO SCH (09:09)
[2022-04-05] MEDS: LISINOPRIL 20 MG TABLET NGT SCH (09:09)
[2022-04-05] MEDS: ATORVASTATIN CA 40 MG TABLET (FP) PO SCH (09:09)
[2022-04-05] MEDS: CARVEDILOL 12.5 MG TABLET (FP) NGT SCH (09:09)
[2022-04-05] MEDS: TAMSULOSIN HCL 0.4 MG CAP PO SCH (09:09)
[2022-04-05] MEDS: ASPIRIN COATED 81 MG TABLET.EC PO SCH (09:09)
[2022-04-05] MEDS ORDERED: hydrALAZINE HCL 25 MG TABLET (FP) NGT SCH (09:26)
[2022-04-05] MEDS ORDERED: CARVEDILOL 12.5 MG TABLET (FP) NGT SCH (10:01)
[2022-04-05 10:45] LABS: BASO % 0.4 % (0-2.0); HEMATOCRIT 39.9 % (35.4-49); LYMPH % 25.1 % (8-40); MCH 29.3 pg (25.7-33.7); MCHC 32.6 g/dl (32.0-35.9); MEAN CELL VOLUME 89.7 fl (80-96); MEAN PLT VOLUME 9.7 fl (7.5-11.1); MONO % 8.3 % (3.8-10.2); NEUT % 66.2 % (42.8-82.8); PLATELET COUNT 201 10^3/uL (134-434); RBC 4.45 M/mm3 (4.00-5.60); RDW 15.5 % (11.9-15.9); WHITE BLOOD COUNT 12.4 K/mm3 (4.0-10.0)
[2022-04-05 10:59] LABS: ALBUMIN 3.6 g/dl (3.4-5.0); BLOOD UREA NITROGEN 24.4 mg/dL (7-18); CALCIUM 9.2 mg/dL (8.5-10.1)
[2022-04-05 11:03] LABS: BILIRUBIN,TOTAL 0.8 mg/dL (0.2-1); CREATININE 1.4 mg/dL (0.55-1.3); TOT PROT 6.8 g/dl (6.4-8.2)
[2022-04-05] MEDS: hydrALAZINE HCL 25 MG TABLET (FP) NGT SCH ×2 (17:58→18:13)
[2022-04-06] MEDS: HEPARIN NA (PORCINE) 5,000 UNITS/ML 1ML VIAL SQ SCH ×3 (06:40→21:26)
[2022-04-06] MEDS: hydrALAZINE HCL 25 MG TABLET (FP) NGT SCH ×4 (06:40→23:42)
[2022-04-06] MEDS: INSULIN SLIDING SCALE (NOVOLOG) 1 VIAL SQ SCH ×4 (06:47→21:31)
[2022-04-06] MEDS: CARVEDILOL 12.5 MG TABLET (FP) NGT SCH ×3 (07:09→22:41)
[2022-04-06 09:28] LABS: BASO % 0.4 % (0-2.0); HEMATOCRIT 39.1 % (35.4-49); HEMOGLOBIN 12.7 GM/dL (11.7-16.9); LYMPH % 23.2 % (8-40); MCH 29.2 pg (25.7-33.7); MCHC 32.6 g/dl (32.0-35.9); MEAN CELL VOLUME 89.7 fl (80-96); MEAN PLT VOLUME 9.9 fl (7.5-11.1); MONO % 7.9 % (3.8-10.2); NEUT % 68.5 % (42.8-82.8); PLATELET COUNT 198 10^3/uL (134-434); RBC 4.36 M/mm3 (4.00-5.60); RDW 15.4 % (11.9-15.9); WHITE BLOOD COUNT 15.2 K/mm3 (4.0-10.0)
[2022-04-06 09:53] LABS: CALCIUM 9.2 mg/dL (8.5-10.1)
[2022-04-06 09:54] LABS: ALBUMIN 3.7 g/dl (3.4-5.0)
[2022-04-06 09:57] LABS: CREATININE 1.6 mg/dL (0.55-1.3)
[2022-04-06 09:58] LABS: BILIRUBIN,TOTAL 0.8 mg/dL (0.2-1)
[2022-04-06] MEDS: AMINO ACIDS 4.25%/D5W 1,000 ML IV SCH (13:07)
[2022-04-06] MEDS: hydrALAZINE HCL 20 MG/ML VIAL IVPUSH PRN (13:23)
[2022-04-06] MEDS: ATORVASTATIN CA 40 MG TABLET (FP) PO SCH (13:32)
[2022-04-06] MEDS: TAMSULOSIN HCL 0.4 MG CAP PO SCH (13:32)
[2022-04-06] MEDS: CLOPIDOGREL BISULFATE 75 MG TABLET (FP) PO SCH (13:32)
[2022-04-06] MEDS: ASPIRIN COATED 81 MG TABLET.EC PO SCH (13:32)
[2022-04-06] MEDS: LISINOPRIL 20 MG TABLET NGT SCH (14:51)
[2022-04-06] MEDS: amLODIPine BESYLATE 5 MG TABLET (FP) NGT SCH (14:51)
[2022-04-06] MEDS ORDERED: ACETAMINOPHEN 650 MG SUPP.RECT RC PRN (15:19)
[2022-04-06] MEDS: ACETAMINOPHEN 650 MG/20.3 ML ORAL SOLUTION (CUPS) NGT PRN (15:46)
[2022-04-07] MEDS: INSULIN SLIDING SCALE (NOVOLOG) 1 VIAL SQ SCH ×4 (06:16→21:10)
[2022-04-07] MEDS: hydrALAZINE HCL 25 MG TABLET (FP) NGT SCH (06:16)
[2022-04-07] MEDS: PIPERACILLIN/TAZOB 3.375 GM 3.375 GM in DEXTROSE 5%-WATER - 50 ML IVPB SCH ×4 (08:38→18:02)
[2022-04-07] MEDS ORDERED: hydrALAZINE HCL 25 MG TABLET (FP) NGT SCH (08:55)
[2022-04-07 08:58] LABS: HEMATOCRIT 38.5 % (35.4-49); MCH 30.4 pg (25.7-33.7); MCHC 33.6 g/dl (32.0-35.9); MEAN CELL VOLUME 90.3 fl (80-96); MEAN PLT VOLUME 10.3 fl (7.5-11.1); PLATELET COUNT 192 10^3/uL (134-434); RBC 4.27 M/mm3 (4.00-5.60); RDW 14.7 % (11.9-15.9); WHITE BLOOD COUNT 17.4 K/mm3 (4.0-10.0)
[2022-04-07] MEDS: LISINOPRIL 20 MG TABLET NGT SCH (09:00)
[2022-04-07] MEDS: CLOPIDOGREL BISULFATE 75 MG TABLET (FP) PO SCH (09:00)
[2022-04-07] MEDS: amLODIPine BESYLATE 5 MG TABLET (FP) NGT SCH (09:00)
[2022-04-07] MEDS: TAMSULOSIN HCL 0.4 MG CAP PO SCH (09:00)
[2022-04-07] MEDS: CARVEDILOL 12.5 MG TABLET (FP) NGT SCH ×2 (09:00→19:41)
[2022-04-07] MEDS: ATORVASTATIN CA 40 MG TABLET (FP) PO SCH (09:00)
[2022-04-07 09:28] LABS: ALBUMIN 3.5 g/dl (3.4-5.0); BLOOD UREA NITROGEN 44.6 mg/dL (7-18)
[2022-04-07 09:31] LABS: CREATININE 1.5 mg/dL (0.55-1.3)
[2022-04-07 09:33] LABS: BILIRUBIN,TOTAL 0.9 mg/dL (0.2-1)
[2022-04-07] MEDS: AMINO ACIDS 4.25%/D5W 1,000 ML IV SCH ×2 (10:33→12:35)
[2022-04-07] MEDS: hydrALAZINE HCL 50 MG TABLET (FP) NGT SCH ×2 (15:31→21:07)
[2022-04-07] MEDS: ACETAMINOPHEN 650 MG/20.3 ML ORAL SOLUTION (CUPS) NGT PRN (21:07)
[2022-04-07 23:03] LABS: EPI CELLS 19 /uL (0-25.1); HYALINE CASTS 0 /uL (0-3.1); PH,URINE 5.5 (5.0-8.0); URINE APPEARANCE CLEAR; URINE BACTERIA 70 /uL (0-1359); URINE BILIRUBIN NEGATIVE (NEGATIVE); URINE COLOR YELLOW; URINE GLUCOSE (UA) NEGATIVE (NEGATIVE); URINE KETONE NEGATIVE (NEGATIVE); URINE LEUK ESTERASE 1+ (NEGATIVE); URINE NITRITE NEGATIVE (NEGATIVE); URINE PROTEIN 2+ (NEGATIVE); URINE RBC 9 /uL (0-23.9); URINE UROBILINOGEN 0.2 mg/dL (0.2-1.0); URINE WBC 20 /uL (0-25.8)
[2022-04-08] MEDS: PIPERACILLIN/TAZOB 3.375 GM 3.375 GM in DEXTROSE 5%-WATER - 50 ML IVPB SCH ×3 (01:05→17:19)
[2022-04-08] MEDS: AMINO ACIDS 4.25%/D5W 1,000 ML IV SCH ×2 (01:49→13:51)
[2022-04-08] MEDS: hydrALAZINE HCL 50 MG TABLET (FP) NGT SCH ×3 (05:45→21:19)
[2022-04-08] MEDS: INSULIN SLIDING SCALE (NOVOLOG) 1 VIAL SQ SCH ×4 (06:01→21:20)
[2022-04-08] MEDS: hydrALAZINE HCL 20 MG/ML VIAL IVPUSH PRN (07:00)
[2022-04-08 08:32] LABS: CALCIUM 8.5 mg/dL (8.5-10.1)
[2022-04-08 08:33] LABS: BLOOD UREA NITROGEN 61.2 mg/dL (7-18)
[2022-04-08] MEDS: CARVEDILOL 12.5 MG TABLET (FP) NGT SCH ×2 (08:36→18:16)
[2022-04-08 08:38] LABS: BASO % 0.2 % (0-2.0); BILIRUBIN,TOTAL 0.7 mg/dL (0.2-1); HEMATOCRIT 37.5 % (35.4-49); HEMOGLOBIN 12.5 GM/dL (11.7-16.9); LYMPH % 22.1 % (8-40); MCH 30.3 pg (25.7-33.7); MCHC 33.4 g/dl (32.0-35.9); MEAN CELL VOLUME 90.6 fl (80-96); MEAN PLT VOLUME 10.3 fl (7.5-11.1); MONO % 7.3 % (3.8-10.2); NEUT % 70.4 % (42.8-82.8); PLATELET COUNT 180 10^3/uL (134-434); RBC 4.13 M/mm3 (4.00-5.60); RDW 14.6 % (11.9-15.9); TOT PROT 6.2 g/dl (6.4-8.2); WHITE BLOOD COUNT 14.4 K/mm3 (4.0-10.0)
[2022-04-08] MEDS: LISINOPRIL 20 MG TABLET NGT SCH (09:40)
[2022-04-08] MEDS: CLOPIDOGREL BISULFATE 75 MG TABLET (FP) PO SCH (09:41)
[2022-04-08] MEDS: amLODIPine BESYLATE 5 MG TABLET (FP) NGT SCH (09:41)
[2022-04-08] MEDS: TAMSULOSIN HCL 0.4 MG CAP PO SCH (09:42)
[2022-04-08] MEDS: ATORVASTATIN CA 40 MG TABLET (FP) PO SCH (09:42)
[2022-04-08] MEDS: KCL 10 MEQ IVPB 10 MEQ/100 ML INFUS.BAG IVPB SCH ×4 (12:03→16:30)
[2022-04-08] MEDS ORDERED: LISINOPRIL 20 MG TABLET NGT SCH (14:24)
[2022-04-08] MEDS: POTASSIUM CHLORIDE 20 MEQ in AMINO ACIDS 4.25%/D5W 1,000 ML IV SCH (16:30)
[2022-04-08] MEDS: ACETAMINOPHEN 650 MG/20.3 ML ORAL SOLUTION (CUPS) NGT PRN (21:20)
[2022-04-09] MEDS: PIPERACILLIN/TAZOB 3.375 GM 3.375 GM in DEXTROSE 5%-WATER - 50 ML IVPB SCH ×3 (00:59→17:50)
[2022-04-09] MEDS: hydrALAZINE HCL 50 MG TABLET (FP) NGT SCH ×3 (06:23→21:37)
[2022-04-09] MEDS: INSULIN SLIDING SCALE (NOVOLOG) 1 VIAL SQ SCH ×4 (06:23→21:35)
[2022-04-09] MEDS: POTASSIUM CHLORIDE 20 MEQ in AMINO ACIDS 4.25%/D5W 1,000 ML IV SCH (06:24)
[2022-04-09 08:48] LABS: BASO % 0.5 % (0-2.0); EOS % 0.1 % (0-4.5); HEMATOCRIT 36.8 % (35.4-49); HEMOGLOBIN 12.3 GM/dL (11.7-16.9); LYMPH % 19.6 % (8-40); MCHC 33.4 g/dl (32.0-35.9); MEAN CELL VOLUME 89.8 fl (80-96); MEAN PLT VOLUME 10.4 fl (7.5-11.1); MONO % 9.4 % (3.8-10.2); NEUT % 70.4 % (42.8-82.8); PLATELET COUNT 191 10^3/uL (134-434); RDW 14.4 % (11.9-15.9); WHITE BLOOD COUNT 16.7 K/mm3 (4.0-10.0)
[2022-04-09 09:04] LABS: CHLORIDE 100 mmol/L (98-107); SODIUM 134 mmol/L (136-145)
[2022-04-09 09:09] LABS: CALCIUM 8.5 mg/dL (8.5-10.1)
[2022-04-09 09:10] LABS: ALBUMIN 2.8 g/dl (3.4-5.0); ANION GAP 14 MMOL/L (8-16); CO2 21 mmol/L (21-32); SGPT/ALT 33 U/L (13-61)
[2022-04-09 09:12] LABS: TOT PROT 6.2 g/dl (6.4-8.2)
[2022-04-09 09:13] LABS: CREATININE 2.6 mg/dL (0.55-1.3); SGOT/AST 24 U/L (15-37)
[2022-04-09 09:15] LABS: BILIRUBIN,TOTAL 0.6 mg/dL (0.2-1)
[2022-04-09 09:16] LABS: ALK PHOS 100 U/L (45-117); BLOOD UREA NITROGEN 87.2 mg/dL (7-18); GLUCOSE,RANDOM 402 mg/dL (74-106)
[2022-04-09] MEDS: CLOPIDOGREL BISULFATE 75 MG TABLET (FP) PO SCH (10:09)
[2022-04-09] MEDS: ATORVASTATIN CA 40 MG TABLET (FP) PO SCH (10:09)
[2022-04-09] MEDS: CARVEDILOL 12.5 MG TABLET (FP) NGT SCH ×2 (10:09→18:02)
[2022-04-09] MEDS: amLODIPine BESYLATE 5 MG TABLET (FP) NGT SCH (10:09)
[2022-04-09] MEDS: HEPARIN NA (PORCINE) 5,000 UNITS/ML 1ML VIAL SQ SCH ×2 (10:10→21:36)
[2022-04-09] MEDS: TAMSULOSIN HCL 0.4 MG CAP PO SCH (10:10)
[2022-04-09] MEDS: SODIUM CHLORIDE 0.45%/POT 20 MEQ/1,000 ML INFUS.BAG IV SCH (10:34)
[2022-04-09] MEDS: INSULIN (LEVEMIR) 100 UNITS/ML UNITS SQ SCH ×2 (11:12→21:35)
[2022-04-09] MEDS: NYSTATIN 500,000 UNITS/5 ML SUSPENSION PO SCH ×2 (13:21→18:03)
[2022-04-09] MEDS: BACITRACIN 15 GM TUBE TOPICAL OINTMENT TP SCH ×2 (17:53→21:37)
[2022-04-09 20:38] LABS: EPI CELLS >36 /uL (0-25.1); HYALINE CASTS 9 /uL (0-3.1); URINE APPEARANCE TURBID; URINE BILIRUBIN 1+ (NEGATIVE); URINE COLOR ORANGE; URINE GLUCOSE (UA) NEGATIVE (NEGATIVE); URINE KETONE NEGATIVE (NEGATIVE); URINE LEUK ESTERASE 3+ (NEGATIVE); URINE NITRITE NEGATIVE (NEGATIVE); URINE PROTEIN 3+ (NEGATIVE); URINE WBC 390 /uL (0-25.8)
[2022-04-09] MEDS: ACETAMINOPHEN 650 MG/20.3 ML ORAL SOLUTION (CUPS) NGT PRN (21:37)
[2022-04-09 22:05] LABS: URINE RBC 15597 /uL (0-23.9)
[2022-04-10] MEDS: NYSTATIN 500,000 UNITS/5 ML SUSPENSION PO SCH ×4 (00:16→17:17)
[2022-04-10] MEDS: PIPERACILLIN/TAZOB 3.375 GM 3.375 GM in DEXTROSE 5%-WATER - 50 ML IVPB SCH ×3 (02:57→17:17)
[2022-04-10] MEDS: SODIUM CHLORIDE 0.45%/POT 20 MEQ/1,000 ML INFUS.BAG IV SCH ×2 (06:27→10:04)
[2022-04-10] MEDS: hydrALAZINE HCL 50 MG TABLET (FP) NGT SCH ×3 (06:30→22:03)
[2022-04-10] MEDS: INSULIN (LEVEMIR) 100 UNITS/ML UNITS SQ SCH (06:30)
[2022-04-10] MEDS: INSULIN SLIDING SCALE (NOVOLOG) 1 VIAL SQ SCH ×4 (06:31→22:06)
[2022-04-10] MEDS: amLODIPine BESYLATE 5 MG TABLET (FP) NGT SCH (09:13)
[2022-04-10] MEDS: ATORVASTATIN CA 40 MG TABLET (FP) PO SCH (09:13)
[2022-04-10] MEDS: HEPARIN NA (PORCINE) 5,000 UNITS/ML 1ML VIAL SQ SCH ×2 (09:14→22:04)
[2022-04-10] MEDS: CLOPIDOGREL BISULFATE 75 MG TABLET (FP) PO SCH (09:14)
[2022-04-10] MEDS: CARVEDILOL 12.5 MG TABLET (FP) NGT SCH ×2 (09:14→18:21)
[2022-04-10] MEDS: TAMSULOSIN HCL 0.4 MG CAP PO SCH (09:14)
[2022-04-10] MEDS: BACITRACIN 15 GM TUBE TOPICAL OINTMENT TP SCH ×2 (10:04→22:04)
[2022-04-10] MEDS ORDERED: INSULIN (LEVEMIR) 100 UNITS/ML UNITS SQ SCH ×2 (18:09→23:52)
[2022-04-11] MEDS: NYSTATIN 500,000 UNITS/5 ML SUSPENSION PO SCH ×4 (00:15→18:20)
[2022-04-11] MEDS: PIPERACILLIN/TAZOB 3.375 GM 3.375 GM in DEXTROSE 5%-WATER - 50 ML IVPB SCH (01:18)
[2022-04-11] MEDS: SODIUM CHLORIDE 0.45%/POT 20 MEQ/1,000 ML INFUS.BAG IV SCH ×2 (01:18→10:56)
[2022-04-11] MEDS: INSULIN SLIDING SCALE (NOVOLOG) 1 VIAL SQ SCH ×4 (06:22→21:26)
[2022-04-11] MEDS: hydrALAZINE HCL 50 MG TABLET (FP) NGT SCH ×3 (06:23→21:25)
[2022-04-11 08:24] LABS: BASO % 0.5 % (0-2.0); EOS % 0.6 % (0-4.5); HEMATOCRIT 33.7 % (35.4-49); HEMOGLOBIN 11.1 GM/dL (11.7-16.9); LYMPH % 24.2 % (8-40); MCH 29.5 pg (25.7-33.7); MCHC 32.8 g/dl (32.0-35.9); MEAN PLT VOLUME 10.6 fl (7.5-11.1); MONO % 9.1 % (3.8-10.2); NEUT % 65.6 % (42.8-82.8); PLATELET COUNT 219 10^3/uL (134-434); RBC 3.75 M/mm3 (4.00-5.60); RDW 14.3 % (11.9-15.9); WHITE BLOOD COUNT 14.4 K/mm3 (4.0-10.0)
[2022-04-11 08:35] LABS: CHLORIDE 103 mmol/L (98-107); SODIUM 135 mmol/L (136-145)
[2022-04-11 08:40] LABS: ALBUMIN 2.4 g/dl (3.4-5.0); ANION GAP 10 MMOL/L (8-16); CALCIUM 8.3 mg/dL (8.5-10.1); CO2 22 mmol/L (21-32); GLUCOSE,RANDOM 322 mg/dL (74-106)
[2022-04-11 08:43] LABS: CREATININE 3.2 mg/dL (0.55-1.3); SGOT/AST 33 U/L (15-37); SGPT/ALT 50 U/L (13-61)
[2022-04-11 08:45] LABS: BILIRUBIN,TOTAL 0.3 mg/dL (0.2-1); TOT PROT 5.4 g/dl (6.4-8.2)
[2022-04-11 08:46] LABS: ALK PHOS 123 U/L (45-117)
[2022-04-11] MEDS: CARVEDILOL 12.5 MG TABLET (FP) NGT SCH ×2 (08:48→18:20)
[2022-04-11 08:55] LABS: BLOOD UREA NITROGEN 109.4 mg/dL (7-18)
[2022-04-11] MEDS: CLOPIDOGREL BISULFATE 75 MG TABLET (FP) PO SCH (09:21)
[2022-04-11] MEDS: ATORVASTATIN CA 40 MG TABLET (FP) PO SCH (09:21)
[2022-04-11] MEDS: TAMSULOSIN HCL 0.4 MG CAP PO SCH (09:21)
[2022-04-11] MEDS: amLODIPine BESYLATE 5 MG TABLET (FP) NGT SCH (09:21)
[2022-04-11] MEDS: HEPARIN NA (PORCINE) 5,000 UNITS/ML 1ML VIAL SQ SCH ×2 (09:22→21:25)
[2022-04-11] MEDS: DOXAZOSIN MESYLATE 2 MG TABLET NGT SCH (10:43)
[2022-04-11] MEDS: BACITRACIN 15 GM TUBE TOPICAL OINTMENT TP SCH ×2 (10:56→21:25)
[2022-04-11] MEDS: POTASSIUM CHLORIDE 10 MEQ in SODIUM CHLORIDE 0.45% 1,000 ML IVPB SCH (18:20)
[2022-04-11] MEDS: INSULIN (LEVEMIR) 100 UNITS/ML UNITS SQ SCH (21:26)
[2022-04-12] MEDS: NYSTATIN 500,000 UNITS/5 ML SUSPENSION PO SCH ×4 (01:15→17:37)
[2022-04-12] MEDS: ACETAMINOPHEN 650 MG/20.3 ML ORAL SOLUTION (CUPS) NGT PRN (01:15)
[2022-04-12] MEDS: POTASSIUM CHLORIDE 10 MEQ in SODIUM CHLORIDE 0.45% 1,000 ML IVPB SCH (06:08)
[2022-04-12] MEDS: hydrALAZINE HCL 50 MG TABLET (FP) NGT SCH ×3 (06:08→21:44)
[2022-04-12] MEDS: INSULIN (LEVEMIR) 100 UNITS/ML UNITS SQ SCH ×2 (06:29→21:45)
[2022-04-12] MEDS: INSULIN SLIDING SCALE (NOVOLOG) 1 VIAL SQ SCH ×4 (06:29→21:46)
[2022-04-12] MEDS: CARVEDILOL 12.5 MG TABLET (FP) NGT SCH ×2 (09:00→18:26)
[2022-04-12] MEDS: ATORVASTATIN CA 40 MG TABLET (FP) PO SCH (09:27)
[2022-04-12] MEDS: TAMSULOSIN HCL 0.4 MG CAP PO SCH (09:27)
[2022-04-12] MEDS: CLOPIDOGREL BISULFATE 75 MG TABLET (FP) PO SCH (09:27)
[2022-04-12] MEDS: amLODIPine BESYLATE 5 MG TABLET (FP) NGT SCH (09:28)
[2022-04-12] MEDS: HEPARIN NA (PORCINE) 5,000 UNITS/ML 1ML VIAL SQ SCH ×2 (09:28→21:45)
[2022-04-12] MEDS: DOXAZOSIN MESYLATE 2 MG TABLET NGT SCH (09:29)
[2022-04-12] MEDS: BACITRACIN 15 GM TUBE TOPICAL OINTMENT TP SCH ×2 (09:29→21:44)
[2022-04-12 10:23] LABS: HEMATOCRIT 35.5 % (35.4-49); HEMOGLOBIN 11.6 GM/dL (11.7-16.9); MCH 29.3 pg (25.7-33.7); MCHC 32.7 g/dl (32.0-35.9); MEAN CELL VOLUME 89.5 fl (80-96); MEAN PLT VOLUME 10.6 fl (7.5-11.1); PLATELET COUNT 234 10^3/uL (134-434); RBC 3.96 M/mm3 (4.00-5.60); RDW 14.5 % (11.9-15.9); WHITE BLOOD COUNT 17.6 K/mm3 (4.0-10.0)
[2022-04-12] MEDS ORDERED: INSULIN (LEVEMIR) 100 UNITS/ML UNITS SQ SCH (10:26)
[2022-04-12 10:49] LABS: CHLORIDE 104 mmol/L (98-107); SODIUM 135 mmol/L (136-145)
[2022-04-12 10:53] LABS: ALBUMIN 2.5 g/dl (3.4-5.0); CALCIUM 8.8 mg/dL (8.5-10.1); GLUCOSE,RANDOM 328 mg/dL (74-106)
[2022-04-12 10:54] LABS: ANION GAP 12 MMOL/L (8-16); CO2 20 mmol/L (21-32)
[2022-04-12 10:56] LABS: SGOT/AST 38 U/L (15-37); SGPT/ALT 56 U/L (13-61)
[2022-04-12 10:58] LABS: BILIRUBIN,TOTAL 0.4 mg/dL (0.2-1); TOT PROT 5.8 g/dl (6.4-8.2)
[2022-04-12 11:00] LABS: ALK PHOS 132 U/L (45-117)
[2022-04-12 11:02] LABS: BLOOD UREA NITROGEN 119.4 mg/dL (7-18)
[2022-04-12 11:17] LABS: ANISOCYTOSIS 0; HELMET CELLS 0; HOWELL-JOLLY BODIES 0; MACROCYTOSIS 0; OVALOCYTE 0; ROULEAU 0; SICKELED CELLS 0; TARGET CELLS 0; TEAR DROP CELLS 0; TOXIC GRANULATION 0
[2022-04-12] MEDS ORDERED: SODIUM CHLORIDE 0.45% 1,000 ML IV SCH (11:45)
[2022-04-12] MEDS: CEFEPIME 1 GM in DEXTROSE 5%-WATER 100 ML IVPB SCH (14:59)
[2022-04-13] MEDS: NYSTATIN 500,000 UNITS/5 ML SUSPENSION PO SCH ×5 (01:09→23:36)
[2022-04-13] MEDS: hydrALAZINE HCL 50 MG TABLET (FP) NGT SCH ×3 (05:55→23:36)
[2022-04-13] MEDS: INSULIN (LEVEMIR) 100 UNITS/ML UNITS SQ SCH (06:02)
[2022-04-13] MEDS: INSULIN SLIDING SCALE (NOVOLOG) 1 VIAL SQ SCH ×3 (06:02→17:10)
[2022-04-13 09:07] LABS: BASO % 0.2 % (0-2.0); EOS % 0.4 % (0-4.5); HEMATOCRIT 32.9 % (35.4-49); HEMOGLOBIN 10.7 GM/dL (11.7-16.9); LYMPH % 16.2 % (8-40); MCH 29.5 pg (25.7-33.7); MCHC 32.6 g/dl (32.0-35.9); MEAN CELL VOLUME 90.3 fl (80-96); MEAN PLT VOLUME 10.6 fl (7.5-11.1); MONO % 9.3 % (3.8-10.2); NEUT % 73.9 % (42.8-82.8); PLATELET COUNT 226 10^3/uL (134-434); RBC 3.64 M/mm3 (4.00-5.60); RDW 14.7 % (11.9-15.9); WHITE BLOOD COUNT 15.7 K/mm3 (4.0-10.0)
[2022-04-13 09:23] LABS: CHLORIDE 106 mmol/L (98-107); SODIUM 137 mmol/L (136-145)
[2022-04-13] MEDS: CEFEPIME 1 GM in DEXTROSE 5%-WATER 100 ML IVPB SCH (09:24)
[2022-04-13] MEDS: amLODIPine BESYLATE 5 MG TABLET (FP) NGT SCH (09:25)
[2022-04-13] MEDS: TAMSULOSIN HCL 0.4 MG CAP PO SCH (09:25)
[2022-04-13] MEDS: CLOPIDOGREL BISULFATE 75 MG TABLET (FP) PO SCH (09:25)
[2022-04-13] MEDS: DOXAZOSIN MESYLATE 2 MG TABLET NGT SCH (09:26)
[2022-04-13] MEDS: ATORVASTATIN CA 40 MG TABLET (FP) PO SCH (09:26)
[2022-04-13] MEDS: HEPARIN NA (PORCINE) 5,000 UNITS/ML 1ML VIAL SQ SCH (09:26)
[2022-04-13] MEDS: CARVEDILOL 12.5 MG TABLET (FP) NGT SCH (09:26)
[2022-04-13] MEDS: BACITRACIN 15 GM TUBE TOPICAL OINTMENT TP SCH ×2 (09:27→22:40)
[2022-04-13] MEDS ORDERED: CARVEDILOL 12.5 MG TABLET (FP) NGT SCH (09:28)
[2022-04-13 09:35] LABS: ALBUMIN 2.2 g/dl (3.4-5.0); ANION GAP 10 MMOL/L (8-16); CALCIUM 8.9 mg/dL (8.5-10.1); CO2 21 mmol/L (21-32); GLUCOSE,RANDOM 318 mg/dL (74-106)
[2022-04-13 09:38] LABS: CREATININE 2.7 mg/dL (0.55-1.3); SGOT/AST 63 U/L (15-37); SGPT/ALT 76 U/L (13-61)
[2022-04-13 09:40] LABS: BILIRUBIN,TOTAL 0.5 mg/dL (0.2-1); TOT PROT 5.4 g/dl (6.4-8.2)
[2022-04-13 09:41] LABS: ALK PHOS 131 U/L (45-117)
[2022-04-13 09:44] LABS: BLOOD UREA NITROGEN 120.3 mg/dL (7-18)
[2022-04-13 10:07] LABS: ANISOCYTOSIS 0; HELMET CELLS 0; HOWELL-JOLLY BODIES 0; MACROCYTOSIS 0; OVALOCYTE 0; ROULEAU 0; SICKELED CELLS 0; TARGET CELLS 0; TEAR DROP CELLS 0; TOXIC GRANULATION 0
[2022-04-13] MEDS ORDERED: SODIUM ZIRCONIUM CYCLOSILICATE (LOKELMA) 5 GM PACKET PO SCH (11:30)
[2022-04-13] MEDS: CARVEDILOL 25 MG TABLET (FP) NGT SCH (18:44)
[2022-04-14] MEDS: HEPARIN NA (PORCINE) 5,000 UNITS/ML 1ML VIAL SQ SCH ×3 (00:39→22:24)
[2022-04-14] MEDS: INSULIN SLIDING SCALE (NOVOLOG) 1 VIAL SQ SCH ×5 (00:40→22:29)
[2022-04-14] MEDS: INSULIN (LEVEMIR) 100 UNITS/ML UNITS SQ SCH ×3 (00:40→22:28)
[2022-04-14] MEDS: hydrALAZINE HCL 50 MG TABLET (FP) NGT SCH ×3 (06:34→22:24)
[2022-04-14] MEDS: NYSTATIN 500,000 UNITS/5 ML SUSPENSION PO SCH ×3 (06:34→17:08)
[2022-04-14] MEDS: CARVEDILOL 25 MG TABLET (FP) NGT SCH ×2 (08:16→18:28)
[2022-04-14 08:54] LABS: HEMATOCRIT 31.2 % (35.4-49); HEMOGLOBIN 10.2 GM/dL (11.7-16.9); MCH 29.5 pg (25.7-33.7); MCHC 32.7 g/dl (32.0-35.9); MEAN PLT VOLUME 10.6 fl (7.5-11.1); PLATELET COUNT 240 10^3/uL (134-434); RBC 3.47 M/mm3 (4.00-5.60); RDW 14.6 % (11.9-15.9); WHITE BLOOD COUNT 15.5 K/mm3 (4.0-10.0)
[2022-04-14 09:13] LABS: CHLORIDE 105 mmol/L (98-107); SODIUM 137 mmol/L (136-145)
[2022-04-14 09:20] LABS: CALCIUM 8.5 mg/dL (8.5-10.1)
[2022-04-14 09:21] LABS: ALBUMIN 2.2 g/dl (3.4-5.0); ANION GAP 10 MMOL/L (8-16); BILIRUBIN,TOTAL 0.6 mg/dL (0.2-1); CO2 22 mmol/L (21-32); GLUCOSE,RANDOM 307 mg/dL (74-106); MAGNESIUM 3.5 mg/dL (1.8-2.4); TOT PROT 5.6 g/dl (6.4-8.2)
[2022-04-14 09:24] LABS: CREATININE 2.3 mg/dL (0.55-1.3); PHOSPHOROUS 4.4 mg/dL (2.5-4.9); SGOT/AST 62 U/L (15-37); SGPT/ALT 89 U/L (13-61)
[2022-04-14 09:25] LABS: ALK PHOS 121 U/L (45-117)
[2022-04-14] MEDS: ATORVASTATIN CA 40 MG TABLET (FP) PO SCH (09:51)
[2022-04-14] MEDS: CEFEPIME 1 GM in DEXTROSE 5%-WATER 100 ML IVPB SCH (09:51)
[2022-04-14] MEDS: amLODIPine BESYLATE 5 MG TABLET (FP) NGT SCH (09:51)
[2022-04-14] MEDS: DOXAZOSIN MESYLATE 2 MG TABLET NGT SCH (09:52)
[2022-04-14] MEDS: TAMSULOSIN HCL 0.4 MG CAP PO SCH (09:52)
[2022-04-14] MEDS: BACITRACIN 15 GM TUBE TOPICAL OINTMENT TP SCH ×2 (09:52→22:24)
[2022-04-14] MEDS: CLOPIDOGREL BISULFATE 75 MG TABLET (FP) PO SCH (09:52)
[2022-04-14 10:00] LABS: ANISOCYTOSIS 1+; MACROCYTOSIS 0; PLATELET ESTIMATE NORMAL
[2022-04-14 10:22] LABS: BLOOD UREA NITROGEN 130.8 mg/dL (7-18)
[2022-04-14] MEDS: SODIUM ZIRCONIUM CYCLOSILICATE (LOKELMA) 5 GM PACKET PO SCH (11:43)
[2022-04-15] MEDS: NYSTATIN 500,000 UNITS/5 ML SUSPENSION PO SCH ×5 (01:05→23:57)
[2022-04-15] MEDS: hydrALAZINE HCL 50 MG TABLET (FP) NGT SCH ×3 (05:40→21:16)
[2022-04-15] MEDS: INSULIN SLIDING SCALE (NOVOLOG) 1 VIAL SQ SCH ×4 (06:04→21:16)
[2022-04-15] MEDS: INSULIN (LEVEMIR) 100 UNITS/ML UNITS SQ SCH ×2 (06:05→21:16)
[2022-04-15 08:37] LABS: HEMATOCRIT 31.9 % (35.4-49); HEMOGLOBIN 10.3 GM/dL (11.7-16.9); MCH 29.5 pg (25.7-33.7); MCHC 32.2 g/dl (32.0-35.9); MEAN CELL VOLUME 91.6 fl (80-96); MEAN PLT VOLUME 10.9 fl (7.5-11.1); PLATELET COUNT 261 10^3/uL (134-434); RBC 3.48 M/mm3 (4.00-5.60); RDW 14.6 % (11.9-15.9); WHITE BLOOD COUNT 15.6 K/mm3 (4.0-10.0)
[2022-04-15 08:51] LABS: CHLORIDE 107 mmol/L (98-107); SODIUM 139 mmol/L (136-145)
[2022-04-15 08:54] LABS: CALCIUM 8.8 mg/dL (8.5-10.1)
[2022-04-15 08:55] LABS: ALBUMIN 2.2 g/dl (3.4-5.0); ANION GAP 10 MMOL/L (8-16); CO2 22 mmol/L (21-32); GLUCOSE,RANDOM 260 mg/dL (74-106)
[2022-04-15 08:58] LABS: CREATININE 2.2 mg/dL (0.55-1.3); SGOT/AST 64 U/L (15-37); SGPT/ALT 99 U/L (13-61)
[2022-04-15 09:00] LABS: BILIRUBIN,TOTAL 0.4 mg/dL (0.2-1); TOT PROT 5.6 g/dl (6.4-8.2)
[2022-04-15 09:01] LABS: ALK PHOS 147 U/L (45-117)
[2022-04-15] MEDS: CEFEPIME 1 GM in DEXTROSE 5%-WATER 100 ML IVPB SCH (09:27)
[2022-04-15] MEDS: TAMSULOSIN HCL 0.4 MG CAP PO SCH (09:28)
[2022-04-15] MEDS: amLODIPine BESYLATE 5 MG TABLET (FP) NGT SCH (09:28)
[2022-04-15] MEDS: CLOPIDOGREL BISULFATE 75 MG TABLET (FP) PO SCH (09:28)
[2022-04-15] MEDS: HEPARIN NA (PORCINE) 5,000 UNITS/ML 1ML VIAL SQ SCH ×2 (09:28→21:16)
[2022-04-15] MEDS: ATORVASTATIN CA 40 MG TABLET (FP) PO SCH (09:28)
[2022-04-15] MEDS: BACITRACIN 15 GM TUBE TOPICAL OINTMENT TP SCH ×2 (09:29→21:16)
[2022-04-15] MEDS: DOXAZOSIN MESYLATE 2 MG TABLET NGT SCH (09:29)
[2022-04-15] MEDS: CARVEDILOL 25 MG TABLET (FP) NGT SCH ×2 (09:29→18:37)
[2022-04-15] MEDS: SODIUM ZIRCONIUM CYCLOSILICATE (LOKELMA) 5 GM PACKET PO SCH (09:30)
[2022-04-15 09:41] LABS: BLOOD UREA NITROGEN 135.2 mg/dL (7-18)
[2022-04-15 10:11] LABS: ANISOCYTOSIS 0; HELMET CELLS 0; HOWELL-JOLLY BODIES 0; MACROCYTOSIS 0; OVALOCYTE 0; ROULEAU 0; SICKELED CELLS 0; TARGET CELLS 0; TEAR DROP CELLS 0; TOXIC GRANULATION 0
[2022-04-15] MEDS: ACETAMINOPHEN 650 MG/20.3 ML ORAL SOLUTION (CUPS) NGT PRN (21:17)
[2022-04-15] MEDS ORDERED: SODIUM ZIRCONIUM CYCLOSILICATE (LOKELMA) 5 GM PACKET PO SCH (22:00)
[2022-04-15] MEDS: SODIUM ZIRCONIUM CYCLOSILICATE (LOKELMA) 5 GM PACKET NGT SCH (23:57)
[2022-04-16] MEDS: NYSTATIN 500,000 UNITS/5 ML SUSPENSION PO SCH ×3 (06:12→18:23)
[2022-04-16] MEDS: hydrALAZINE HCL 50 MG TABLET (FP) NGT SCH ×3 (06:12→22:39)
[2022-04-16] MEDS: INSULIN (LEVEMIR) 100 UNITS/ML UNITS SQ SCH ×2 (06:13→22:39)
[2022-04-16] MEDS: INSULIN SLIDING SCALE (NOVOLOG) 1 VIAL SQ SCH ×4 (06:13→22:39)
[2022-04-16 07:33] LABS: CHLORIDE 106 mmol/L (98-107); SODIUM 140 mmol/L (136-145)
[2022-04-16 07:37] LABS: ALBUMIN 2.1 g/dl (3.4-5.0); ANION GAP 10 MMOL/L (8-16); CALCIUM 8.7 mg/dL (8.5-10.1); CO2 23 mmol/L (21-32); GLUCOSE,RANDOM 242 mg/dL (74-106)
[2022-04-16 07:40] LABS: CREATININE 2.2 mg/dL (0.55-1.3); SGOT/AST 46 U/L (15-37); SGPT/ALT 87 U/L (13-61)
[2022-04-16 07:42] LABS: BILIRUBIN,TOTAL 0.3 mg/dL (0.2-1); TOT PROT 5.5 g/dl (6.4-8.2)
[2022-04-16 07:43] LABS: ALK PHOS 145 U/L (45-117)
[2022-04-16 07:57] LABS: BLOOD UREA NITROGEN 139.8 mg/dL (7-18)
[2022-04-16] MEDS: CARVEDILOL 25 MG TABLET (FP) NGT SCH ×2 (08:05→20:00)
[2022-04-16] MEDS: DOXAZOSIN MESYLATE 2 MG TABLET NGT SCH (10:04)
[2022-04-16] MEDS: CLOPIDOGREL BISULFATE 75 MG TABLET (FP) PO SCH (10:04)
[2022-04-16] MEDS: amLODIPine BESYLATE 5 MG TABLET (FP) NGT SCH (10:05)
[2022-04-16] MEDS: ATORVASTATIN CA 40 MG TABLET (FP) PO SCH (10:05)
[2022-04-16] MEDS: CEFEPIME 1 GM in DEXTROSE 5%-WATER 100 ML IVPB SCH (10:06)
[2022-04-16] MEDS: BACITRACIN 15 GM TUBE TOPICAL OINTMENT TP SCH ×2 (10:06→22:39)
[2022-04-16] MEDS: POLYETHYLENE GLYCOL (HEALTHYLAX) 3350 17 GM PACKET PEG SCH (10:06)
[2022-04-16] MEDS: SODIUM ZIRCONIUM CYCLOSILICATE (LOKELMA) 5 GM PACKET NGT SCH ×2 (11:57→22:40)
[2022-04-17] MEDS: NYSTATIN 500,000 UNITS/5 ML SUSPENSION PO SCH ×4 (00:09→17:23)
[2022-04-17] MEDS: hydrALAZINE HCL 50 MG TABLET (FP) NGT SCH ×3 (06:13→22:56)
[2022-04-17] MEDS: INSULIN (LEVEMIR) 100 UNITS/ML UNITS SQ SCH ×2 (06:13→22:14)
[2022-04-17] MEDS: INSULIN SLIDING SCALE (NOVOLOG) 1 VIAL SQ SCH ×4 (06:13→22:14)
[2022-04-17] MEDS: CARVEDILOL 25 MG TABLET (FP) NGT SCH ×2 (08:18→22:08)
[2022-04-17] MEDS: amLODIPine BESYLATE 5 MG TABLET (FP) NGT SCH (10:18)
[2022-04-17] MEDS: CLOPIDOGREL BISULFATE 75 MG TABLET (FP) PO SCH (10:18)
[2022-04-17] MEDS: BACITRACIN 15 GM TUBE TOPICAL OINTMENT TP SCH ×2 (10:18→22:09)
[2022-04-17] MEDS: ATORVASTATIN CA 40 MG TABLET (FP) PO SCH (10:18)
[2022-04-17] MEDS: POLYETHYLENE GLYCOL (HEALTHYLAX) 3350 17 GM PACKET PEG SCH (10:19)
[2022-04-17] MEDS: DOXAZOSIN MESYLATE 2 MG TABLET NGT SCH (11:00)
[2022-04-17] MEDS: CEFEPIME 1 GM in DEXTROSE 5%-WATER 100 ML IVPB SCH (11:00)
[2022-04-17] MEDS: SODIUM ZIRCONIUM CYCLOSILICATE (LOKELMA) 5 GM PACKET NGT SCH ×2 (11:20→22:12)
[2022-04-17] MEDS: levETIRAcetam 500 MG/5 ML ORAL SOLUTION (UNIT-DOSE CUPS) PO SCH ×2 (15:02→22:56)
[2022-04-17] MEDS: AMMONIUM LACTATE 12% LOTION 225 GM BOTTLE TP SCH (22:10)
[2022-04-18] MEDS: NYSTATIN 500,000 UNITS/5 ML SUSPENSION PO SCH ×6 (00:20→23:10)
[2022-04-18] MEDS: INSULIN SLIDING SCALE (NOVOLOG) 1 VIAL SQ SCH ×4 (06:17→21:55)
[2022-04-18] MEDS: hydrALAZINE HCL 50 MG TABLET (FP) NGT SCH ×3 (06:17→21:55)
[2022-04-18] MEDS: INSULIN (LEVEMIR) 100 UNITS/ML UNITS SQ SCH ×2 (06:18→21:54)
[2022-04-18 08:32] LABS: HEMATOCRIT 29.3 % (35.4-49); HEMOGLOBIN 9.6 GM/dL (11.7-16.9); MCH 29.5 pg (25.7-33.7); MCHC 32.7 g/dl (32.0-35.9); MEAN CELL VOLUME 90.2 fl (80-96); MEAN PLT VOLUME 10.7 fl (7.5-11.1); PLATELET COUNT 326 10^3/uL (134-434); RBC 3.25 M/mm3 (4.00-5.60); RDW 14.5 % (11.9-15.9); WHITE BLOOD COUNT 16.4 K/mm3 (4.0-10.0)
[2022-04-18 08:38] LABS: INR 0.98 (0.83-1.09); PROTHROMBIN TIME (PATIENT) 11.3 SEC (9.7-13.0)
[2022-04-18 08:47] LABS: CHLORIDE 104 mmol/L (98-107); SODIUM 139 mmol/L (136-145)
[2022-04-18 08:52] LABS: ALBUMIN 2.3 g/dl (3.4-5.0); ANION GAP 11 MMOL/L (8-16); CALCIUM 8.5 mg/dL (8.5-10.1); CO2 24 mmol/L (21-32); GLUCOSE,RANDOM 273 mg/dL (74-106)
[2022-04-18 08:55] LABS: CREATININE 2.2 mg/dL (0.55-1.3); SGPT/ALT 96 U/L (13-61)
[2022-04-18 08:56] LABS: SGOT/AST 58 U/L (15-37)
[2022-04-18 08:57] LABS: BILIRUBIN,TOTAL 0.3 mg/dL (0.2-1); TOT PROT 5.6 g/dl (6.4-8.2)
[2022-04-18 09:07] LABS: ALK PHOS 203 U/L (45-117); BLOOD UREA NITROGEN 149.9 mg/dL (7-18)
[2022-04-18 09:31] LABS: ANISOCYTOSIS 1+; MACROCYTOSIS 0; PLATELET ESTIMATE INCREASED
[2022-04-18] MEDS: CEFEPIME 1 GM in DEXTROSE 5%-WATER 100 ML IVPB SCH (09:34)
[2022-04-18] MEDS: POLYETHYLENE GLYCOL (HEALTHYLAX) 3350 17 GM PACKET PEG SCH (09:34)
[2022-04-18] MEDS: ATORVASTATIN CA 40 MG TABLET (FP) PO SCH (09:35)
[2022-04-18] MEDS: amLODIPine BESYLATE 5 MG TABLET (FP) NGT SCH (09:35)
[2022-04-18] MEDS: CARVEDILOL 25 MG TABLET (FP) NGT SCH ×2 (09:35→18:28)
[2022-04-18] MEDS: DOXAZOSIN MESYLATE 2 MG TABLET NGT SCH (09:36)
[2022-04-18] MEDS: BACITRACIN 15 GM TUBE TOPICAL OINTMENT TP SCH ×2 (09:36→21:55)
[2022-04-18] MEDS: levETIRAcetam 500 MG/5 ML ORAL SOLUTION (UNIT-DOSE CUPS) PO SCH (09:36)
[2022-04-18] MEDS ORDERED: ENOXAPARIN NA (PORCINE) 40 MG/0.4 ML DISP.SYRIN SQ SCH (10:00)
[2022-04-18] MEDS: SODIUM CHLORIDE 0.45% 1,000 ML IV SCH (10:18)
[2022-04-18] MEDS: ALBUMIN HUMAN 25% 12.5 GM/50 ML VIAL IV SCH ×2 (10:19→22:28)
[2022-04-18] MEDS: ENOXAPARIN NA (PORCINE) 30 MG/0.3 ML DISP.SYRIN SQ SCH (11:35)
[2022-04-18] MEDS: AMMONIUM LACTATE 12% LOTION 225 GM BOTTLE TP SCH ×2 (11:36→21:55)
[2022-04-18] MEDS: SODIUM ZIRCONIUM CYCLOSILICATE (LOKELMA) 5 GM PACKET NGT SCH (11:37)
[2022-04-18 15:33] LABS: EPI CELLS 16 /uL (0-25.1); HYALINE CASTS 2 /uL (0-3.1); PH,URINE 6.5 (5.0-8.0); URINE APPEARANCE CLEAR; URINE BACTERIA 68 /uL (0-1359); URINE BILIRUBIN NEGATIVE (NEGATIVE); URINE COLOR YELLOW; URINE GLUCOSE (UA) NEGATIVE (NEGATIVE); URINE KETONE NEGATIVE (NEGATIVE); URINE LEUK ESTERASE 1+ (NEGATIVE); URINE NITRITE NEGATIVE (NEGATIVE); URINE PROTEIN TRACE (NEGATIVE); URINE RBC 34 /uL (0-23.9); URINE UROBILINOGEN 0.2 mg/dL (0.2-1.0); URINE WBC 40 /uL (0-25.8)
[2022-04-18] MEDS: ACETAMINOPHEN 650 MG/20.3 ML ORAL SOLUTION (CUPS) NGT PRN (21:53)
[2022-04-18] MEDS: levETIRAcetam 500 MG/5 ML ORAL SOLUTION (UNIT-DOSE CUPS) GT SCH (21:53)
[2022-04-18] MEDS: DOCUSATE NA 100 MG/10 ML UNIT-DOSE CUPS GT PRN (21:54)
[2022-04-19] MEDS ORDERED: PIPERACILLIN/TAZOB 2.25 GM 2.25 GM in DEXTROSE 5%-WATER - 50 ML IVPB SCH ×2 (02:00→18:00)
[2022-04-19] MEDS: SODIUM CHLORIDE 0.45% 1,000 ML IV SCH ×2 (03:09→09:52)
[2022-04-19] MEDS: DOCUSATE NA 100 MG/10 ML UNIT-DOSE CUPS GT PRN (06:01)
[2022-04-19] MEDS: INSULIN (LEVEMIR) 100 UNITS/ML UNITS SQ SCH ×2 (06:01→21:57)
[2022-04-19] MEDS: hydrALAZINE HCL 50 MG TABLET (FP) NGT SCH ×3 (06:01→21:44)
[2022-04-19] MEDS: NYSTATIN 500,000 UNITS/5 ML SUSPENSION PO SCH ×3 (06:01→17:50)
[2022-04-19] MEDS: INSULIN SLIDING SCALE (NOVOLOG) 1 VIAL SQ SCH ×4 (06:02→21:57)
[2022-04-19] MEDS: ACETAMINOPHEN 650 MG/20.3 ML ORAL SOLUTION (CUPS) NGT PRN (06:52)
[2022-04-19] MEDS: POLYETHYLENE GLYCOL (HEALTHYLAX) 3350 17 GM PACKET PEG SCH (09:44)
[2022-04-19] MEDS: CARVEDILOL 25 MG TABLET (FP) NGT SCH ×2 (09:45→20:09)
[2022-04-19] MEDS: amLODIPine BESYLATE 5 MG TABLET (FP) NGT SCH (09:45)
[2022-04-19] MEDS: ENOXAPARIN NA (PORCINE) 30 MG/0.3 ML DISP.SYRIN SQ SCH (09:46)
[2022-04-19] MEDS: levETIRAcetam 500 MG/5 ML ORAL SOLUTION (UNIT-DOSE CUPS) GT SCH (09:54)
[2022-04-19] MEDS: BACITRACIN 15 GM TUBE TOPICAL OINTMENT TP SCH ×2 (09:54→21:55)
[2022-04-19] MEDS: AMMONIUM LACTATE 12% LOTION 225 GM BOTTLE TP SCH ×2 (09:54→21:56)
[2022-04-19] MEDS: DOXAZOSIN MESYLATE 2 MG TABLET NGT SCH (09:54)
[2022-04-19] MEDS ORDERED: ATORVASTATIN CA 40 MG TABLET (FP) GT SCH (10:00)
[2022-04-19] MEDS ORDERED: SODIUM ZIRCONIUM CYCLOSILICATE (LOKELMA) 5 GM PACKET NGT SCH (10:00)
[2022-04-19 10:32] LABS: HEMATOCRIT 26.6 % (35.4-49); MCH 30.7 pg (25.7-33.7); MCHC 33.8 g/dl (32.0-35.9); MEAN PLT VOLUME 10.3 fl (7.5-11.1); PLATELET COUNT 300 10^3/uL (134-434); RBC 2.92 M/mm3 (4.00-5.60); RDW 14.5 % (11.9-15.9); WHITE BLOOD COUNT 17.6 K/mm3 (4.0-10.0)
[2022-04-19 10:55] LABS: CHLORIDE 102 mmol/L (98-107); SODIUM 135 mmol/L (136-145)
[2022-04-19 10:58] LABS: ALBUMIN 2.5 g/dl (3.4-5.0); ANION GAP 11 MMOL/L (8-16); CALCIUM 8.6 mg/dL (8.5-10.1); CO2 22 mmol/L (21-32); GLUCOSE,RANDOM 278 mg/dL (74-106)
[2022-04-19 11:01] LABS: CREATININE 2.4 mg/dL (0.55-1.3); SGOT/AST 106 U/L (15-37); SGPT/ALT 131 U/L (13-61)
[2022-04-19 11:02] LABS: BILIRUBIN,TOTAL 0.5 mg/dL (0.2-1); TOT PROT 5.7 g/dl (6.4-8.2)
[2022-04-19 11:04] LABS: ALK PHOS 228 U/L (45-117)
[2022-04-19 11:05] LABS: BLOOD UREA NITROGEN 167.5 mg/dL (7-18)
[2022-04-19 12:01] LABS: ANISOCYTOSIS 0; MACROCYTOSIS 0; PLATELET ESTIMATE NORMAL
[2022-04-19] MEDS: ALBUMIN HUMAN 25% 12.5 GM/50 ML VIAL IV SCH ×2 (12:18→21:53)
[2022-04-19] MEDS ORDERED: SODIUM PHOSPHATE/NA BIPHOS 133 ML ENEMA RC ONE (12:43)
[2022-04-19] MEDS ORDERED: DOCUSATE SODIUM 100 MG CAPSULE (FP) PO PRN ×2 (12:43→20:24)
[2022-04-19] MEDS ORDERED: FUROSEMIDE 40 MG/4 ML INJECTABLE VIAL IVPUSH ONE ×2 (15:09→21:38)
[2022-04-19 16:56] LABS: HEMATOCRIT 26.4 % (35.4-49); HEMOGLOBIN 8.9 GM/dL (11.7-16.9); MCH 30.5 pg (25.7-33.7); MCHC 33.8 g/dl (32.0-35.9); MEAN CELL VOLUME 90.1 fl (80-96); MEAN PLT VOLUME 9.9 fl (7.5-11.1); PLATELET COUNT 280 10^3/uL (134-434); RBC 2.93 M/mm3 (4.00-5.60); RDW 14.3 % (11.9-15.9); WHITE BLOOD COUNT 14.5 K/mm3 (4.0-10.0)
[2022-04-19 17:16] LABS: CHLORIDE 101 mmol/L (98-107); SODIUM 136 mmol/L (136-145)
[2022-04-19 17:19] LABS: CALCIUM 8.4 mg/dL (8.5-10.1)
[2022-04-19 17:21] LABS: ALBUMIN 2.5 g/dl (3.4-5.0); ANION GAP 11 MMOL/L (8-16); CO2 23 mmol/L (21-32); GLUCOSE,RANDOM 226 mg/dL (74-106)
[2022-04-19 17:23] LABS: CREATININE 2.4 mg/dL (0.55-1.3); SGOT/AST 106 U/L (15-37); SGPT/ALT 143 U/L (13-61)
[2022-04-19 17:26] LABS: BILIRUBIN,TOTAL 0.4 mg/dL (0.2-1); TOT PROT 5.6 g/dl (6.4-8.2)
[2022-04-19 17:27] LABS: ALK PHOS 216 U/L (45-117)
[2022-04-19 17:36] LABS: BLOOD UREA NITROGEN 160.1 mg/dL (7-18)
[2022-04-19] MEDS ORDERED: hydrALAZINE HCL 20 MG/ML VIAL IVPUSH PRN (20:24)
[2022-04-19] MEDS ORDERED: ACETAMINOPHEN 650 MG/20.3 ML ORAL SOLUTION (CUPS) NGT PRN (20:24)
[2022-04-19 20:40] LABS: ARTERIAL BLD GAS O2 SATURATION 96.6 % (95-98); ARTERIAL BLOOD GAS BASE EXCESS 0.6 mmol/L (-2-2); ARTERIAL BLOOD GAS PO2 81.5 mmHg (80-100); ARTERIAL BLOOD GAS pH 7.456 (7.350-7.450)
[2022-04-19 20:41] LABS: ALLENS TEST POSITIVE
[2022-04-19] MEDS: ALBUTEROL SO4 2.5/IPRATROPIUM 0.5 INH SOL 3 ML VIAL.NEB. NEB SCH (20:45)
[2022-04-19] MEDS: PANTOPRAZOLE SODIUM 40 MG VIAL IVPUSH SCH (21:52)
[2022-04-19] MEDS: CHLORHEXIDINE GLUCONATE 4% CLEANSER FOR DECOLONIZATION TP SCH (21:55)
[2022-04-19] MEDS: MUPIROCIN 2% TOPICAL OINTMENT FOR DECOLONIZATION NS SCH (21:55)
[2022-04-19] MEDS ORDERED: PANTOPRAZOLE SODIUM 40 MG VIAL IVPUSH SCH (22:00)
[2022-04-19] MEDS ORDERED: levETIRAcetam 500 MG/5 ML ORAL SOLUTION (UNIT-DOSE CUPS) GT SCH (22:00)
[2022-04-20] MEDS ORDERED: PIPERACILLIN/TAZOB 2.25 GM 2.25 GM in DEXTROSE 5%-WATER - 50 ML IVPB SCH (02:00)
[2022-04-20] MEDS: NYSTATIN 500,000 UNITS/5 ML SUSPENSION PO SCH ×2 (02:36→05:55)
[2022-04-20] MEDS: hydrALAZINE HCL 50 MG TABLET (FP) NGT SCH (05:55)
[2022-04-20] MEDS: INSULIN SLIDING SCALE (NOVOLOG) 1 VIAL SQ SCH ×4 (06:38→21:50)
[2022-04-20] MEDS: INSULIN (LEVEMIR) 100 UNITS/ML UNITS SQ SCH ×2 (06:38→21:45)
[2022-04-20 07:26] LABS: BASO % 0.2 % (0-2.0); EOS % 0.1 % (0-4.5); HEMATOCRIT 24.5 % (35.4-49); LYMPH % 13.6 % (8-40); MCH 29.4 pg (25.7-33.7); MCHC 32.7 g/dl (32.0-35.9); MEAN CELL VOLUME 90.1 fl (80-96); MEAN PLT VOLUME 10.4 fl (7.5-11.1); MONO % 5.7 % (3.8-10.2); NEUT % 80.4 % (42.8-82.8); PLATELET COUNT 298 10^3/uL (134-434); RBC 2.72 M/mm3 (4.00-5.60); RDW 14.3 % (11.9-15.9); WHITE BLOOD COUNT 16.2 K/mm3 (4.0-10.0)
[2022-04-20 07:47] LABS: CHLORIDE 105 mmol/L (98-107); SODIUM 142 mmol/L (136-145)
[2022-04-20 07:50] LABS: ALBUMIN 2.5 g/dl (3.4-5.0); ANION GAP 11 MMOL/L (8-16); CALCIUM 8.8 mg/dL (8.5-10.1); CO2 26 mmol/L (21-32)
[2022-04-20 07:51] LABS: GLUCOSE,RANDOM 102 mg/dL (74-106)
[2022-04-20 07:54] LABS: CREATININE 2.6 mg/dL (0.55-1.3); PHOSPHOROUS 6.7 mg/dL (2.5-4.9); SGOT/AST 59 U/L (15-37); SGPT/ALT 106 U/L (13-61)
[2022-04-20 07:55] LABS: BILIRUBIN,TOTAL 0.7 mg/dL (0.2-1); TOT PROT 5.3 g/dl (6.4-8.2)
[2022-04-20] MEDS ORDERED: CARVEDILOL 25 MG TABLET (FP) NGT SCH (08:00)
[2022-04-20 08:29] LABS: ALK PHOS 129 U/L (45-117)
[2022-04-20] MEDS: ALBUTEROL SO4 2.5/IPRATROPIUM 0.5 INH SOL 3 ML VIAL.NEB. NEB SCH ×4 (08:40→20:40)
[2022-04-20 08:44] LABS: BLOOD UREA NITROGEN 167.8 mg/dL (7-18)
[2022-04-20] MEDS: POLYETHYLENE GLYCOL (HEALTHYLAX) 3350 17 GM PACKET PEG SCH ×2 (09:12→10:09)
[2022-04-20] MEDS: BACITRACIN 15 GM TUBE TOPICAL OINTMENT TP SCH ×2 (09:12→21:46)
[2022-04-20] MEDS ORDERED: amLODIPine BESYLATE 10 MG TABLET (FP) NGT SCH (10:00)
[2022-04-20] MEDS ORDERED: SODIUM ZIRCONIUM CYCLOSILICATE (LOKELMA) 5 GM PACKET NGT SCH (10:00)
[2022-04-20] MEDS ORDERED: DOXAZOSIN MESYLATE 2 MG TABLET NGT SCH (10:00)
[2022-04-20] MEDS ORDERED: ATORVASTATIN CA 40 MG TABLET (FP) GT SCH (10:00)
[2022-04-20] MEDS: ALBUMIN HUMAN 25% 12.5 GM/50 ML VIAL IV SCH ×2 (10:14→21:43)
[2022-04-20] MEDS: MUPIROCIN 2% TOPICAL OINTMENT FOR DECOLONIZATION NS SCH ×2 (10:24→21:46)
[2022-04-20] MEDS: AMMONIUM LACTATE 12% LOTION 225 GM BOTTLE TP SCH ×2 (10:25→21:45)
[2022-04-20] MEDS: PANTOPRAZOLE SODIUM 40 MG VIAL IVPUSH SCH ×2 (10:37→21:45)
[2022-04-20] MEDS: levETIRAcetam 500 MG/5 ML INJECTION VIAL IVPB SCH ×2 (10:37→21:45)
[2022-04-20] MEDS: CHLORHEXIDINE GLUCONATE 4% CLEANSER FOR DECOLONIZATION TP SCH (21:46)
[2022-04-21] MEDS: INSULIN (LEVEMIR) 100 UNITS/ML UNITS SQ SCH ×2 (06:52→23:09)
[2022-04-21] MEDS: INSULIN SLIDING SCALE (NOVOLOG) 1 VIAL SQ SCH ×4 (06:53→23:09)
[2022-04-21] MEDS: ALBUTEROL SO4 2.5/IPRATROPIUM 0.5 INH SOL 3 ML VIAL.NEB. NEB SCH ×4 (07:30→20:35)
[2022-04-21 08:33] LABS: CHLORIDE 108 mmol/L (98-107); SODIUM 146 mmol/L (136-145)
[2022-04-21 08:36] LABS: ANION GAP 12 MMOL/L (8-16); CO2 26 mmol/L (21-32); GLUCOSE,RANDOM 147 mg/dL (74-106); MAGNESIUM 4.3 mg/dL (1.8-2.4)
[2022-04-21 08:40] LABS: CREATININE 2.3 mg/dL (0.55-1.3); PHOSPHOROUS 6.9 mg/dL (2.5-4.9)
[2022-04-21 08:42] LABS: INR 1.18 (0.83-1.09); PROTHROMBIN TIME (PATIENT) 13.6 SEC (9.7-13.0)
[2022-04-21 08:45] LABS: ACTIVATED PTT 28.3 SECONDS (25.2-36.5)
[2022-04-21 09:06] LABS: BLOOD UREA NITROGEN 156.1 mg/dL (7-18)
[2022-04-21] MEDS: BACITRACIN 15 GM TUBE TOPICAL OINTMENT TP SCH ×2 (10:33→22:18)
[2022-04-21] MEDS: POLYETHYLENE GLYCOL (HEALTHYLAX) 3350 17 GM PACKET PEG SCH (10:34)
[2022-04-21] MEDS: MUPIROCIN 2% TOPICAL OINTMENT FOR DECOLONIZATION NS SCH ×2 (10:34→22:18)
[2022-04-21] MEDS: AMMONIUM LACTATE 12% LOTION 225 GM BOTTLE TP SCH ×2 (10:35→22:18)
[2022-04-21] MEDS: PIPERACILLIN/TAZOB 3.375 GM 3.375 GM in DEXTROSE 5%-WATER - 50 ML IVPB SCH ×3 (10:45→18:43)
[2022-04-21] MEDS: methylPREDNISolone NA SUCC 40 MG/1 ML VIAL IVPUSH SCH ×2 (10:53→18:42)
[2022-04-21] MEDS: levETIRAcetam 500 MG/5 ML INJECTION VIAL IVPB SCH ×2 (10:53→22:18)
[2022-04-21] MEDS: PANTOPRAZOLE SODIUM 40 MG VIAL IVPUSH SCH ×2 (10:54→22:18)
[2022-04-21 11:10] LABS: BASO % 0.2 % (0-2.0); EOS % 0.4 % (0-4.5); HEMATOCRIT 25.5 % (35.4-49); HEMOGLOBIN 8.6 GM/dL (11.7-16.9); LYMPH % 15.6 % (8-40); MCH 30.7 pg (25.7-33.7); MCHC 33.6 g/dl (32.0-35.9); MEAN CELL VOLUME 91.3 fl (80-96); MEAN PLT VOLUME 10.2 fl (7.5-11.1); NEUT % 75.8 % (42.8-82.8); PLATELET COUNT 282 10^3/uL (134-434); RDW 14.1 % (11.9-15.9); WHITE BLOOD COUNT 15.1 K/mm3 (4.0-10.0)
[2022-04-21] MEDS: PIPERACILLIN/TAZOB 2.25 GM 2.25 GM in DEXTROSE 5%-WATER - 50 ML IVPB SCH ×2 (16:54→22:18)
[2022-04-21] MEDS: AMINO ACIDS 4.25%/D5W 1,000 ML IV SCH (17:00)
[2022-04-21] MEDS: CHLORHEXIDINE GLUCONATE 4% CLEANSER FOR DECOLONIZATION TP SCH (22:18)
[2022-04-22] MEDS: methylPREDNISolone NA SUCC 40 MG/1 ML VIAL IVPUSH SCH ×3 (02:05→17:02)
[2022-04-22] MEDS: PIPERACILLIN/TAZOB 2.25 GM 2.25 GM in DEXTROSE 5%-WATER - 50 ML IVPB SCH ×4 (02:31→22:06)
[2022-04-22] MEDS: INSULIN SLIDING SCALE (NOVOLOG) 1 VIAL SQ SCH ×4 (06:00→23:29)
[2022-04-22] MEDS: INSULIN (LEVEMIR) 100 UNITS/ML UNITS SQ SCH ×2 (06:00→23:28)
[2022-04-22] MEDS: ALBUTEROL SO4 2.5/IPRATROPIUM 0.5 INH SOL 3 ML VIAL.NEB. NEB SCH ×4 (07:58→20:07)
[2022-04-22 09:11] LABS: BASO % 0.1 % (0-2.0); HEMATOCRIT 25.4 % (35.4-49); HEMOGLOBIN 8.4 GM/dL (11.7-16.9); LYMPH % 13.2 % (8-40); MCH 29.9 pg (25.7-33.7); MCHC 32.9 g/dl (32.0-35.9); MEAN CELL VOLUME 90.9 fl (80-96); MEAN PLT VOLUME 9.8 fl (7.5-11.1); MONO % 3.1 % (3.8-10.2); NEUT % 83.6 % (42.8-82.8); PLATELET COUNT 316 10^3/uL (134-434); RDW 13.9 % (11.9-15.9); WHITE BLOOD COUNT 13.4 K/mm3 (4.0-10.0)
[2022-04-22 09:20] LABS: INR 1.21 (0.83-1.09); PROTHROMBIN TIME (PATIENT) 13.9 SEC (9.7-13.0)
[2022-04-22 09:43] LABS: CHLORIDE 114 mmol/L (98-107); SODIUM 148 mmol/L (136-145)
[2022-04-22 09:44] LABS: ANION GAP 7 MMOL/L (8-16); CALCIUM 8.9 mg/dL (8.5-10.1); CO2 27 mmol/L (21-32); GLUCOSE,RANDOM 345 mg/dL (74-106)
[2022-04-22 09:48] LABS: BLOOD UREA NITROGEN 139.3 mg/dL (7-18); CREATININE 2.4 mg/dL (0.55-1.3)
[2022-04-22] MEDS: PANTOPRAZOLE SODIUM 40 MG VIAL IVPUSH SCH ×2 (10:02→23:31)
[2022-04-22] MEDS: AMINO ACIDS 4.25%/D5W 1,000 ML IV SCH ×2 (10:03→11:45)
[2022-04-22] MEDS: MUPIROCIN 2% TOPICAL OINTMENT FOR DECOLONIZATION NS SCH ×2 (10:04→22:08)
[2022-04-22] MEDS: BACITRACIN 15 GM TUBE TOPICAL OINTMENT TP SCH ×2 (10:04→22:12)
[2022-04-22] MEDS: POLYETHYLENE GLYCOL (HEALTHYLAX) 3350 17 GM PACKET PEG SCH (11:16)
[2022-04-22] MEDS: levETIRAcetam 500 MG/5 ML INJECTION VIAL IVPB SCH ×2 (11:17→22:08)
[2022-04-22] MEDS: AMMONIUM LACTATE 12% LOTION 225 GM BOTTLE TP SCH ×2 (11:35→23:37)
[2022-04-22] MEDS ORDERED: PIPERACILLIN/TAZOBACTAM 2.25 GM VIAL IVPB ONE ×2 (15:32→20:41)
[2022-04-22] MEDS: CHLORHEXIDINE GLUCONATE 4% CLEANSER FOR DECOLONIZATION TP SCH (22:08)
[2022-04-23] MEDS: methylPREDNISolone NA SUCC 40 MG/1 ML VIAL IVPUSH SCH ×3 (02:33→17:46)
[2022-04-23] MEDS: PIPERACILLIN/TAZOB 2.25 GM 2.25 GM in DEXTROSE 5%-WATER - 50 ML IVPB SCH ×4 (02:34→22:58)
[2022-04-23] MEDS: INSULIN SLIDING SCALE (NOVOLOG) 1 VIAL SQ SCH ×4 (06:27→22:45)
[2022-04-23] MEDS: INSULIN (LEVEMIR) 100 UNITS/ML UNITS SQ SCH ×2 (06:28→22:45)
[2022-04-23] MEDS: ALBUTEROL SO4 2.5/IPRATROPIUM 0.5 INH SOL 3 ML VIAL.NEB. NEB SCH ×4 (07:16→21:37)
[2022-04-23] MEDS ORDERED: hydrALAZINE HCL 20 MG/ML VIAL IVPUSH PRN (07:19)
[2022-04-23] MEDS: levETIRAcetam 500 MG/5 ML INJECTION VIAL IVPB SCH ×2 (10:32→22:42)
[2022-04-23] MEDS: PANTOPRAZOLE SODIUM 40 MG VIAL IVPUSH SCH ×2 (10:32→22:42)
[2022-04-23] MEDS: BACITRACIN 15 GM TUBE TOPICAL OINTMENT TP SCH ×2 (10:44→22:44)
[2022-04-23] MEDS: POLYETHYLENE GLYCOL (HEALTHYLAX) 3350 17 GM PACKET PEG SCH ×2 (10:45→11:26)
[2022-04-23] MEDS: amLODIPine BESYLATE 10 MG TABLET (FP) NGT SCH ×3 (10:45→23:04)
[2022-04-23] MEDS: AMMONIUM LACTATE 12% LOTION 225 GM BOTTLE TP SCH ×2 (11:20→22:44)
[2022-04-23 11:29] LABS: HEMOGLOBIN 8.9 GM/dL (11.7-16.9); MCH 29.1 pg (25.7-33.7); MCHC 31.8 g/dl (32.0-35.9); MEAN CELL VOLUME 91.4 fl (80-96); MEAN PLT VOLUME 10.1 fl (7.5-11.1); PLATELET COUNT 327 10^3/uL (134-434); RBC 3.07 M/mm3 (4.00-5.60); WHITE BLOOD COUNT 15.6 K/mm3 (4.0-10.0)
[2022-04-23 11:49] LABS: CHLORIDE 113 mmol/L (98-107); SODIUM 146 mmol/L (136-145)
[2022-04-23 11:52] LABS: ALBUMIN 2.7 g/dl (3.4-5.0); ANION GAP 7 MMOL/L (8-16); CO2 26 mmol/L (21-32)
[2022-04-23 11:55] LABS: CREATININE 2.5 mg/dL (0.55-1.3); SGOT/AST 24 U/L (15-37); SGPT/ALT 70 U/L (13-61)
[2022-04-23 11:56] LABS: TOT PROT 5.9 g/dl (6.4-8.2)
[2022-04-23 11:57] LABS: ALK PHOS 102 U/L (45-117); BILIRUBIN,TOTAL 0.4 mg/dL (0.2-1); BLOOD UREA NITROGEN 146.2 mg/dL (7-18); GLUCOSE,RANDOM 429 mg/dL (74-106)
[2022-04-23] MEDS: AMINO ACIDS 4.25%/D5W 1,000 ML IV SCH (12:53)
[2022-04-23 13:21] LABS: ANISOCYTOSIS 0; HELMET CELLS 0; HOWELL-JOLLY BODIES 0; MACROCYTOSIS 0; OVALOCYTE 0; ROULEAU 0; SICKELED CELLS 0; TARGET CELLS 0; TEAR DROP CELLS 0; TOXIC GRANULATION 0
[2022-04-23] MEDS ORDERED: PIPERACILLIN/TAZOBACTAM 2.25 GM VIAL IVPB ONE (15:40)
[2022-04-23] MEDS: SODIUM CHLORIDE 0.45% 1,000 ML IV SCH (17:40)
[2022-04-24] MEDS ORDERED: PIPERACILLIN/TAZOBACTAM 2.25 GM VIAL IVPB ONE (03:08)
[2022-04-24] MEDS: methylPREDNISolone NA SUCC 40 MG/1 ML VIAL IVPUSH SCH ×3 (03:14→19:01)
[2022-04-24] MEDS: PIPERACILLIN/TAZOB 2.25 GM 2.25 GM in DEXTROSE 5%-WATER - 50 ML IVPB SCH ×4 (03:14→21:07)
[2022-04-24] MEDS: INSULIN SLIDING SCALE (NOVOLOG) 1 VIAL SQ SCH ×4 (06:48→21:36)
[2022-04-24] MEDS: INSULIN (LEVEMIR) 100 UNITS/ML UNITS SQ SCH ×2 (06:50→21:35)
[2022-04-24] MEDS: ALBUTEROL SO4 2.5/IPRATROPIUM 0.5 INH SOL 3 ML VIAL.NEB. NEB SCH ×4 (07:29→20:50)
[2022-04-24 08:10] LABS: BASO % 0.1 % (0-2.0); HEMOGLOBIN 9.2 GM/dL (11.7-16.9); LYMPH % 19.3 % (8-40); MCH 30.1 pg (25.7-33.7); MEAN CELL VOLUME 91.2 fl (80-96); MEAN PLT VOLUME 9.5 fl (7.5-11.1); MONO % 2.6 % (3.8-10.2); PLATELET COUNT 327 10^3/uL (134-434); RBC 3.07 M/mm3 (4.00-5.60); RDW 13.8 % (11.9-15.9); WHITE BLOOD COUNT 16.7 K/mm3 (4.0-10.0)
[2022-04-24 08:23] LABS: CHLORIDE 119 mmol/L (98-107); SODIUM 150 mmol/L (136-145)
[2022-04-24 08:25] LABS: CALCIUM 8.6 mg/dL (8.5-10.1)
[2022-04-24 08:26] LABS: ALBUMIN 2.7 g/dl (3.4-5.0); ANION GAP 7 MMOL/L (8-16); CO2 25 mmol/L (21-32); GLUCOSE,RANDOM 159 mg/dL (74-106)
[2022-04-24 08:29] LABS: CREATININE 2.1 mg/dL (0.55-1.3); SGOT/AST 31 U/L (15-37); SGPT/ALT 69 U/L (13-61)
[2022-04-24 08:31] LABS: BILIRUBIN,TOTAL 0.4 mg/dL (0.2-1)
[2022-04-24 08:32] LABS: ALK PHOS 102 U/L (45-117)
[2022-04-24 09:01] LABS: BLOOD UREA NITROGEN 129.1 mg/dL (7-18)
[2022-04-24] MEDS: POLYETHYLENE GLYCOL (HEALTHYLAX) 3350 17 GM PACKET PEG SCH (11:01)
[2022-04-24] MEDS: amLODIPine BESYLATE 10 MG TABLET (FP) NGT SCH (11:01)
[2022-04-24] MEDS: levETIRAcetam 500 MG/5 ML INJECTION VIAL IVPB SCH ×2 (11:02→20:59)
[2022-04-24] MEDS: PANTOPRAZOLE SODIUM 40 MG VIAL IVPUSH SCH ×2 (11:02→20:59)
[2022-04-24] MEDS: BACITRACIN 15 GM TUBE TOPICAL OINTMENT TP SCH ×2 (11:14→21:08)
[2022-04-24] MEDS: AMMONIUM LACTATE 12% LOTION 225 GM BOTTLE TP SCH ×2 (11:14→21:12)
[2022-04-24] MEDS: SODIUM CHLORIDE 0.45% 1,000 ML IV SCH (16:36)
[2022-04-25] MEDS: methylPREDNISolone NA SUCC 40 MG/1 ML VIAL IVPUSH SCH ×2 (01:49→12:16)
[2022-04-25] MEDS: PIPERACILLIN/TAZOB 2.25 GM 2.25 GM in DEXTROSE 5%-WATER - 50 ML IVPB SCH ×4 (02:28→21:56)
[2022-04-25] MEDS: INSULIN (LEVEMIR) 100 UNITS/ML UNITS SQ SCH ×2 (06:46→22:13)
[2022-04-25] MEDS: INSULIN SLIDING SCALE (NOVOLOG) 1 VIAL SQ SCH ×4 (06:47→22:13)
[2022-04-25] MEDS: ALBUTEROL SO4 2.5/IPRATROPIUM 0.5 INH SOL 3 ML VIAL.NEB. NEB SCH ×4 (07:57→20:28)
[2022-04-25 08:10] LABS: BASO % 0.1 % (0-2.0); HEMATOCRIT 27.3 % (35.4-49); HEMOGLOBIN 9.3 GM/dL (11.7-16.9); LYMPH % 20.6 % (8-40); MCH 31.3 pg (25.7-33.7); MEAN CELL VOLUME 91.8 fl (80-96); MEAN PLT VOLUME 9.6 fl (7.5-11.1); MONO % 1.3 % (3.8-10.2); PLATELET COUNT 311 10^3/uL (134-434); RBC 2.97 M/mm3 (4.00-5.60); RDW 13.9 % (11.9-15.9); WHITE BLOOD COUNT 15.9 K/mm3 (4.0-10.0)
[2022-04-25 08:24] LABS: CHLORIDE 120 mmol/L (98-107); SODIUM 153 mmol/L (136-145)
[2022-04-25 08:32] LABS: CALCIUM 8.8 mg/dL (8.5-10.1)
[2022-04-25 08:33] LABS: ALBUMIN 2.6 g/dl (3.4-5.0); ANION GAP 7 MMOL/L (8-16); CO2 26 mmol/L (21-32); GLUCOSE,RANDOM 242 mg/dL (74-106)
[2022-04-25 08:36] LABS: SGOT/AST 87 U/L (15-37); SGPT/ALT 129 U/L (13-61)
[2022-04-25 08:38] LABS: TOT PROT 5.8 g/dl (6.4-8.2)
[2022-04-25 08:39] LABS: ALK PHOS 119 U/L (45-117); BILIRUBIN,TOTAL 0.5 mg/dL (0.2-1)
[2022-04-25 08:49] LABS: BLOOD UREA NITROGEN 110.1 mg/dL (7-18)
[2022-04-25] MEDS ORDERED: hydrALAZINE HCL 20 MG/ML VIAL IVPUSH PRN (10:05)
[2022-04-25] MEDS: PANTOPRAZOLE SODIUM 40 MG VIAL IVPUSH SCH ×2 (12:17→21:57)
[2022-04-25] MEDS: levETIRAcetam 500 MG/5 ML INJECTION VIAL IVPB SCH ×2 (12:18→21:57)
[2022-04-25] MEDS: AMMONIUM LACTATE 12% LOTION 225 GM BOTTLE TP SCH ×2 (12:18→22:13)
[2022-04-25] MEDS: amLODIPine BESYLATE 10 MG TABLET (FP) NGT SCH (12:18)
[2022-04-25] MEDS: BACITRACIN 15 GM TUBE TOPICAL OINTMENT TP SCH ×2 (12:19→22:13)
[2022-04-25] MEDS: POLYETHYLENE GLYCOL (HEALTHYLAX) 3350 17 GM PACKET PEG SCH (12:19)
[2022-04-25] MEDS: hydrALAZINE HCL 25 MG TABLET (FP) NGT SCH ×2 (14:56→21:57)
[2022-04-26] MEDS: methylPREDNISolone NA SUCC 40 MG/1 ML VIAL IVPUSH SCH ×2 (01:20→12:32)
[2022-04-26] MEDS: PIPERACILLIN/TAZOB 2.25 GM 2.25 GM in DEXTROSE 5%-WATER - 50 ML IVPB SCH ×4 (03:29→21:55)
[2022-04-26] MEDS: hydrALAZINE HCL 25 MG TABLET (FP) NGT SCH ×3 (05:48→22:42)
[2022-04-26] MEDS: INSULIN SLIDING SCALE (NOVOLOG) 1 VIAL SQ SCH ×4 (06:06→23:27)
[2022-04-26] MEDS: INSULIN (LEVEMIR) 100 UNITS/ML UNITS SQ SCH ×2 (06:06→23:26)
[2022-04-26] MEDS: ALBUTEROL SO4 2.5/IPRATROPIUM 0.5 INH SOL 3 ML VIAL.NEB. NEB SCH ×4 (08:13→20:10)
[2022-04-26 08:40] LABS: CALCIUM 8.4 mg/dL (8.5-10.1)
[2022-04-26 08:42] LABS: ALBUMIN 2.4 g/dl (3.4-5.0)
[2022-04-26 08:45] LABS: CREATININE 1.7 mg/dL (0.55-1.3)
[2022-04-26 08:47] LABS: BILIRUBIN,TOTAL 0.5 mg/dL (0.2-1); TOT PROT 5.4 g/dl (6.4-8.2)
[2022-04-26 08:48] LABS: BLOOD UREA NITROGEN 82.5 mg/dL (7-18)
[2022-04-26] MEDS: PANTOPRAZOLE SODIUM 40 MG VIAL IVPUSH SCH ×2 (09:21→22:44)
[2022-04-26] MEDS: POLYETHYLENE GLYCOL (HEALTHYLAX) 3350 17 GM PACKET PEG SCH (09:22)
[2022-04-26] MEDS: amLODIPine BESYLATE 10 MG TABLET (FP) NGT SCH (09:22)
[2022-04-26] MEDS: levETIRAcetam 500 MG/5 ML INJECTION VIAL IVPB SCH ×2 (11:10→22:43)
[2022-04-26] MEDS: BACITRACIN 15 GM TUBE TOPICAL OINTMENT TP SCH ×2 (11:22→22:43)
[2022-04-26] MEDS: AMMONIUM LACTATE 12% LOTION 225 GM BOTTLE TP SCH ×2 (11:22→23:26)
[2022-04-27] MEDS: methylPREDNISolone NA SUCC 40 MG/1 ML VIAL IVPUSH SCH ×3 (00:10→23:19)
[2022-04-27] MEDS: PIPERACILLIN/TAZOB 2.25 GM 2.25 GM in DEXTROSE 5%-WATER - 50 ML IVPB SCH ×2 (04:20→09:21)
[2022-04-27] MEDS: hydrALAZINE HCL 25 MG TABLET (FP) NGT SCH ×3 (05:49→23:17)
[2022-04-27] MEDS: INSULIN (LEVEMIR) 100 UNITS/ML UNITS SQ SCH ×2 (06:11→23:16)
[2022-04-27] MEDS: INSULIN SLIDING SCALE (NOVOLOG) 1 VIAL SQ SCH ×4 (06:11→23:16)
[2022-04-27 07:54] LABS: HEMATOCRIT 29.2 % (35.4-49); HEMOGLOBIN 9.9 GM/dL (11.7-16.9); MCH 30.9 pg (25.7-33.7); MCHC 33.9 g/dl (32.0-35.9); MEAN CELL VOLUME 91.1 fl (80-96); MEAN PLT VOLUME 9.5 fl (7.5-11.1); PLATELET COUNT 234 10^3/uL (134-434); RDW 13.4 % (11.9-15.9); WHITE BLOOD COUNT 22.6 K/mm3 (4.0-10.0)
[2022-04-27 08:19] LABS: ALBUMIN 2.3 g/dl (3.4-5.0); BLOOD UREA NITROGEN 66.9 mg/dL (7-18); CALCIUM 8.4 mg/dL (8.5-10.1); MAGNESIUM 2.7 mg/dL (1.8-2.4)
[2022-04-27 08:22] LABS: CREATININE 1.6 mg/dL (0.55-1.3)
[2022-04-27 08:23] LABS: BILIRUBIN,TOTAL 0.7 mg/dL (0.2-1); TOT PROT 5.2 g/dl (6.4-8.2)
[2022-04-27] MEDS: ALBUTEROL SO4 2.5/IPRATROPIUM 0.5 INH SOL 3 ML VIAL.NEB. NEB SCH ×4 (08:47→20:05)
[2022-04-27 09:29] LABS: ANISOCYTOSIS 0; HELMET CELLS 0; HOWELL-JOLLY BODIES 0; MACROCYTOSIS 0; OVALOCYTE 0; ROULEAU 0; SICKELED CELLS 0; TARGET CELLS 0; TEAR DROP CELLS 0; TOXIC GRANULATION 0
[2022-04-27] MEDS: PANTOPRAZOLE SODIUM 40 MG VIAL IVPUSH SCH ×2 (10:40→23:19)
[2022-04-27] MEDS: levETIRAcetam 500 MG/5 ML INJECTION VIAL IVPB SCH ×2 (10:40→23:18)
[2022-04-27] MEDS: BACITRACIN 15 GM TUBE TOPICAL OINTMENT TP SCH ×2 (10:41→23:18)
[2022-04-27] MEDS: POLYETHYLENE GLYCOL (HEALTHYLAX) 3350 17 GM PACKET PEG SCH (10:41)
[2022-04-27] MEDS: AMMONIUM LACTATE 12% LOTION 225 GM BOTTLE TP SCH ×2 (10:41→23:18)
[2022-04-27] MEDS: amLODIPine BESYLATE 10 MG TABLET (FP) NGT SCH (10:42)
[2022-04-27] MEDS ORDERED: DEXTROSE 5%-WATER - 1,000 ML IV SCH (12:45)
[2022-04-27] MEDS ORDERED: VANCOMYCIN/WATER FOR INJ (PEG) 1,000 MG/200 ML BAG IVPB ONE (14:13)
[2022-04-27] MEDS: MEROPENEM 1 GM in DEXTROSE 5%-WATER 100 ML IVPB SCH (14:58)
[2022-04-27] MEDS ORDERED: PIPERACILLIN/TAZOB 3.375 GM 3.375 GM in DEXTROSE 5%-WATER - 50 ML IVPB SCH (15:00)
[2022-04-28] MEDS: MEROPENEM 1 GM in DEXTROSE 5%-WATER 100 ML IVPB SCH ×3 (00:36→14:59)
[2022-04-28] MEDS: hydrALAZINE HCL 25 MG TABLET (FP) NGT SCH ×2 (06:30→14:59)
[2022-04-28] MEDS: INSULIN SLIDING SCALE (NOVOLOG) 1 VIAL SQ SCH ×4 (06:34→23:11)
[2022-04-28] MEDS: INSULIN (LEVEMIR) 100 UNITS/ML UNITS SQ SCH ×2 (06:34→23:12)
[2022-04-28] MEDS ORDERED: methylPREDNISolone NA SUCC 40 MG/1 ML VIAL IVPUSH SCH (06:58)
[2022-04-28] MEDS: ALBUTEROL SO4 2.5/IPRATROPIUM 0.5 INH SOL 3 ML VIAL.NEB. NEB SCH ×4 (07:48→19:38)
[2022-04-28 08:22] LABS: HEMATOCRIT 30.2 % (35.4-49); HEMOGLOBIN 9.9 GM/dL (11.7-16.9); MCH 29.9 pg (25.7-33.7); MCHC 32.8 g/dl (32.0-35.9); MEAN CELL VOLUME 91.2 fl (80-96); MEAN PLT VOLUME 9.9 fl (7.5-11.1); PLATELET COUNT 211 10^3/uL (134-434); RBC 3.31 M/mm3 (4.00-5.60); RDW 13.7 % (11.9-15.9); WHITE BLOOD COUNT 28.9 K/mm3 (4.0-10.0)
[2022-04-28 08:43] LABS: CALCIUM 8.6 mg/dL (8.5-10.1)
[2022-04-28 08:44] LABS: ALBUMIN 2.4 g/dl (3.4-5.0); BLOOD UREA NITROGEN 56.4 mg/dL (7-18)
[2022-04-28 08:47] LABS: CREATININE 1.7 mg/dL (0.55-1.3)
[2022-04-28 08:49] LABS: TOT PROT 5.5 g/dl (6.4-8.2)
[2022-04-28 08:50] LABS: BILIRUBIN,TOTAL 0.6 mg/dL (0.2-1)
[2022-04-28] MEDS: AMMONIUM LACTATE 12% LOTION 225 GM BOTTLE TP SCH (09:56)
[2022-04-28] MEDS: BACITRACIN 15 GM TUBE TOPICAL OINTMENT TP SCH ×2 (09:56→23:00)
[2022-04-28] MEDS: methylPREDNISolone NA SUCC 40 MG/1 ML VIAL IVPUSH SCH ×2 (09:56→22:58)
[2022-04-28] MEDS: levETIRAcetam 500 MG/5 ML INJECTION VIAL IVPB SCH ×2 (09:56→23:03)
[2022-04-28] MEDS: POLYETHYLENE GLYCOL (HEALTHYLAX) 3350 17 GM PACKET PEG SCH (09:56)
[2022-04-28] MEDS: PANTOPRAZOLE SODIUM 40 MG VIAL IVPUSH SCH ×2 (09:57→23:04)
[2022-04-28] MEDS: amLODIPine BESYLATE 10 MG TABLET (FP) NGT SCH (09:57)
[2022-04-28] MEDS ORDERED: METOPROLOL TARTRATE 25 MG TABLET (FP) PO SCH (10:00)
[2022-04-28 10:26] LABS: ANISOCYTOSIS 2+; MACROCYTOSIS 0
[2022-04-28] MEDS ORDERED: VANCOMYCIN/WATER FOR INJ (PEG) 1,000 MG/200 ML BAG IVPB ONE (15:00)
[2022-04-28] MEDS ORDERED: hydrALAZINE HCL 20 MG/ML VIAL IVPB ONE (17:25)
[2022-04-29] MEDS: AMMONIUM LACTATE 12% LOTION 225 GM BOTTLE TP SCH ×2 (02:33→09:41)
[2022-04-29] MEDS: hydrALAZINE HCL 25 MG TABLET (FP) NGT SCH ×3 (02:35→14:47)
[2022-04-29] MEDS: MEROPENEM 1 GM in DEXTROSE 5%-WATER 100 ML IVPB SCH ×2 (02:44→14:46)
[2022-04-29] MEDS: INSULIN SLIDING SCALE (NOVOLOG) 1 VIAL SQ SCH ×3 (06:25→16:42)
[2022-04-29] MEDS: INSULIN (LEVEMIR) 100 UNITS/ML UNITS SQ SCH (06:29)
[2022-04-29] MEDS: ALBUTEROL SO4 2.5/IPRATROPIUM 0.5 INH SOL 3 ML VIAL.NEB. NEB SCH ×4 (08:20→20:05)
[2022-04-29] MEDS ORDERED: TAMSULOSIN HCL 0.4 MG CAP PO SCH (08:30)
[2022-04-29] MEDS: POLYETHYLENE GLYCOL (HEALTHYLAX) 3350 17 GM PACKET PEG SCH (09:36)
[2022-04-29] MEDS: BACITRACIN 15 GM TUBE TOPICAL OINTMENT TP SCH (09:36)
[2022-04-29] MEDS: methylPREDNISolone NA SUCC 40 MG/1 ML VIAL IVPUSH SCH (09:37)
[2022-04-29] MEDS: levETIRAcetam 500 MG/5 ML INJECTION VIAL IVPB SCH (09:37)
[2022-04-29] MEDS: PANTOPRAZOLE SODIUM 40 MG VIAL IVPUSH SCH (09:38)
[2022-04-29] MEDS: amLODIPine BESYLATE 10 MG TABLET (FP) NGT SCH (09:39)
[2022-04-30] MEDS: PANTOPRAZOLE SODIUM 40 MG VIAL IVPUSH SCH ×3 (01:20→23:05)
[2022-04-30] MEDS: levETIRAcetam 500 MG/5 ML INJECTION VIAL IVPB SCH ×3 (02:38→23:03)
[2022-04-30] MEDS: hydrALAZINE HCL 25 MG TABLET (FP) NGT SCH ×4 (02:50→23:02)
[2022-04-30] MEDS: BACITRACIN 15 GM TUBE TOPICAL OINTMENT TP SCH ×3 (02:51→23:02)
[2022-04-30] MEDS: AMMONIUM LACTATE 12% LOTION 225 GM BOTTLE TP SCH ×3 (02:52→23:16)
[2022-04-30] MEDS: INSULIN SLIDING SCALE (NOVOLOG) 1 VIAL SQ SCH ×5 (02:52→23:19)
[2022-04-30] MEDS: INSULIN (LEVEMIR) 100 UNITS/ML UNITS SQ SCH ×3 (02:52→23:19)
[2022-04-30] MEDS: MEROPENEM 1 GM in DEXTROSE 5%-WATER 100 ML IVPB SCH ×2 (03:20→13:49)
[2022-04-30] MEDS: ALBUTEROL SO4 2.5/IPRATROPIUM 0.5 INH SOL 3 ML VIAL.NEB. NEB SCH ×4 (09:00→20:20)
[2022-04-30] MEDS: POLYETHYLENE GLYCOL (HEALTHYLAX) 3350 17 GM PACKET PEG SCH (10:03)
[2022-04-30] MEDS: methylPREDNISolone NA SUCC 40 MG/1 ML VIAL IVPUSH SCH (10:17)
[2022-04-30] MEDS: amLODIPine BESYLATE 10 MG TABLET (FP) NGT SCH (10:30)
[2022-04-30 10:37] LABS: BASO % 0.1 % (0-2.0); EOS % 0.2 % (0-4.5); HEMATOCRIT 24.1 % (35.4-49); HEMOGLOBIN 7.9 GM/dL (11.7-16.9); LYMPH % 15.9 % (8-40); MCH 30.1 pg (25.7-33.7); MCHC 32.7 g/dl (32.0-35.9); MEAN CELL VOLUME 91.9 fl (80-96); MEAN PLT VOLUME 10.6 fl (7.5-11.1); MONO % 4.5 % (3.8-10.2); NEUT % 79.3 % (42.8-82.8); PLATELET COUNT 137 10^3/uL (134-434); RBC 2.63 M/mm3 (4.00-5.60); RDW 13.8 % (11.9-15.9); WHITE BLOOD COUNT 17.5 K/mm3 (4.0-10.0)
[2022-04-30 10:58] LABS: CALCIUM 8.1 mg/dL (8.5-10.1)
[2022-04-30 10:59] LABS: BLOOD UREA NITROGEN 60.9 mg/dL (7-18)
[2022-04-30 11:02] LABS: CREATININE 1.5 mg/dL (0.55-1.3)
[2022-04-30 11:03] LABS: BILIRUBIN,TOTAL 0.7 mg/dL (0.2-1); TOT PROT 4.7 g/dl (6.4-8.2)
[2022-04-30] MEDS: DEXTROSE 5%-WATER - 1,000 ML IV SCH (12:50)
[2022-04-30] MEDS: hydrALAZINE HCL 20 MG/ML VIAL IVPUSH PRN (14:37)
[2022-04-30] MEDS: AMINO ACIDS 4.25%/D5W 1,000 ML IV SCH (16:17)
[2022-05-01] MEDS: MEROPENEM 1 GM in DEXTROSE 5%-WATER 100 ML IVPB SCH ×2 (01:42→14:26)
[2022-05-01] MEDS: hydrALAZINE HCL 25 MG TABLET (FP) NGT SCH ×3 (06:47→21:14)
[2022-05-01] MEDS: INSULIN (LEVEMIR) 100 UNITS/ML UNITS SQ SCH ×2 (06:58→21:21)
[2022-05-01] MEDS: INSULIN SLIDING SCALE (NOVOLOG) 1 VIAL SQ SCH ×4 (06:59→21:15)
[2022-05-01] MEDS: DEXTROSE 5%-WATER - 1,000 ML IV SCH ×2 (07:05→12:08)
[2022-05-01] MEDS: hydrALAZINE HCL 20 MG/ML VIAL IVPUSH PRN (07:05)
[2022-05-01] MEDS: ALBUTEROL SO4 2.5/IPRATROPIUM 0.5 INH SOL 3 ML VIAL.NEB. NEB SCH ×4 (08:15→20:02)
[2022-05-01] MEDS: levETIRAcetam 500 MG/5 ML INJECTION VIAL IVPB SCH ×2 (10:37→21:18)
[2022-05-01] MEDS: PANTOPRAZOLE SODIUM 40 MG VIAL IVPUSH SCH ×2 (10:38→21:17)
[2022-05-01] MEDS: methylPREDNISolone NA SUCC 40 MG/1 ML VIAL IVPUSH SCH (10:43)
[2022-05-01] MEDS: BACITRACIN 15 GM TUBE TOPICAL OINTMENT TP SCH ×3 (11:00→21:14)
[2022-05-01] MEDS: POLYETHYLENE GLYCOL (HEALTHYLAX) 3350 17 GM PACKET PEG SCH (11:00)
[2022-05-01] MEDS: AMMONIUM LACTATE 12% LOTION 225 GM BOTTLE TP SCH ×2 (11:00→21:21)
[2022-05-01] MEDS: amLODIPine BESYLATE 10 MG TABLET (FP) NGT SCH (11:00)
[2022-05-01 12:24] LABS: ALBUMIN 2.1 g/dl (3.4-5.0); CALCIUM 8.5 mg/dL (8.5-10.1)
[2022-05-01 12:26] LABS: BLOOD UREA NITROGEN 51.2 mg/dL (7-18)
[2022-05-01 12:28] LABS: CREATININE 1.3 mg/dL (0.55-1.3)
[2022-05-01 12:30] LABS: BILIRUBIN,TOTAL 0.6 mg/dL (0.2-1); TOT PROT 5.1 g/dl (6.4-8.2)
[2022-05-01] MEDS ORDERED: DEXTROSE 50%-WATER 25 GM/50 ML DISP.SYRIN ONE (16:33)
[2022-05-01] MEDS ORDERED: DEXTROSE 50%-WATER - 25 GM/50 ML VIAL IVPUSH PRN (18:30)
[2022-05-01] MEDS: hydrALAZINE HCL 20 MG/ML VIAL IVPB PRN (18:59)
[2022-05-01] MEDS: AMINO ACIDS 4.25%/D5W 1,000 ML IV SCH (19:36)
[2022-05-01] MEDS: POTASSIUM CHLORIDE 20 MEQ in AMINO ACIDS 4.25%/D5W 1,000 ML IV SCH (20:52)
[2022-05-02] MEDS: MEROPENEM 1 GM in DEXTROSE 5%-WATER 100 ML IVPB SCH ×2 (01:34→14:23)
[2022-05-02] MEDS: INSULIN (LEVEMIR) 100 UNITS/ML UNITS SQ SCH ×2 (06:15→21:49)
[2022-05-02] MEDS: INSULIN SLIDING SCALE (NOVOLOG) 1 VIAL SQ SCH ×4 (06:16→21:50)
[2022-05-02] MEDS: hydrALAZINE HCL 25 MG TABLET (FP) NGT SCH ×4 (06:16→21:49)
[2022-05-02] MEDS: hydrALAZINE HCL 20 MG/ML VIAL IVPB PRN ×3 (06:24→14:23)
[2022-05-02] MEDS ORDERED: ACETAMINOPHEN 1000 MG/100 ML BAG IVPB PRN (07:26)
[2022-05-02] MEDS: ALBUTEROL SO4 2.5/IPRATROPIUM 0.5 INH SOL 3 ML VIAL.NEB. NEB SCH ×4 (08:59→20:41)
[2022-05-02] MEDS: amLODIPine BESYLATE 10 MG TABLET (FP) NGT SCH (10:28)
[2022-05-02] MEDS: POLYETHYLENE GLYCOL (HEALTHYLAX) 3350 17 GM PACKET PEG SCH (10:28)
[2022-05-02] MEDS: levETIRAcetam 500 MG/5 ML INJECTION VIAL IVPB SCH ×2 (10:43→21:47)
[2022-05-02] MEDS: AMMONIUM LACTATE 12% LOTION 225 GM BOTTLE TP SCH ×2 (10:43→21:49)
[2022-05-02] MEDS: methylPREDNISolone NA SUCC 40 MG/1 ML VIAL IVPUSH SCH (10:43)
[2022-05-02] MEDS: PANTOPRAZOLE SODIUM 40 MG VIAL IVPUSH SCH ×2 (10:43→21:46)
[2022-05-02 11:38] LABS: BASO % 0.1 % (0-2.0); EOS % 0.3 % (0-4.5); HEMATOCRIT 24.1 % (35.4-49); HEMOGLOBIN 7.8 GM/dL (11.7-16.9); LYMPH % 11.8 % (8-40); MCHC 32.6 g/dl (32.0-35.9); MEAN CELL VOLUME 92.1 fl (80-96); MEAN PLT VOLUME 10.2 fl (7.5-11.1); MONO % 4.2 % (3.8-10.2); NEUT % 83.6 % (42.8-82.8); PLATELET COUNT 139 10^3/uL (134-434); RBC 2.61 M/mm3 (4.00-5.60); RDW 13.6 % (11.9-15.9); WHITE BLOOD COUNT 17.4 K/mm3 (4.0-10.0)
[2022-05-02 12:01] LABS: BLOOD UREA NITROGEN 48.6 mg/dL (7-18); CALCIUM 8.1 mg/dL (8.5-10.1)
[2022-05-02] MEDS: POTASSIUM CHLORIDE 20 MEQ in AMINO ACIDS 4.25%/D5W 1,000 ML IV SCH ×2 (12:02→15:24)
[2022-05-02 12:05] LABS: BILIRUBIN,TOTAL 0.6 mg/dL (0.2-1); CREATININE 1.2 mg/dL (0.55-1.3)
[2022-05-02] MEDS: BACITRACIN 15 GM TUBE TOPICAL OINTMENT TP SCH ×2 (12:31→21:49)
[2022-05-02] MEDS ORDERED: DEXTROSE 50%-WATER 25 GM/50 ML DISP.SYRIN IVPUSH ONE (17:15)
[2022-05-03] MEDS: MEROPENEM 1 GM in DEXTROSE 5%-WATER 100 ML IVPB SCH (02:00)
[2022-05-03 02:33] LABS: ARTERIAL BLD GAS O2 SATURATION 80.4 % (95-98); ARTERIAL BLOOD GAS BASE EXCESS -9.5 mmol/L (-2-2); ARTERIAL BLOOD GAS PO2 55.6 mmHg (80-100)
[2022-05-03 02:37] LABS: ALLENS TEST POSITIVE
[2022-05-03 03:20] VITALS: BP 147/50; PULSE 101; RESP 22; TEMP 100
== END 2022-05-03 09:49 | disposition expired | DRG 64 ==
LOC: FER 18:40 → FM/S 21:34 → INTOOBSV 21:34 → JICU 03-31 11:13 → J4S 03-31 22:45 → OBSVTOIN 04-02 06:43 → JICU 04-19 19:04 → J4W 04-22 06:37 → J5S 04-28 12:42
PROVIDERS: ADMIT Internal Medicine; ATTEND Family Medicine
PROC: 0DH67UZ Insertion of Feeding Device into Stomach, Via Natural or Artificial Opening (ICD-10-PCS; principal; 2022-04-08)
DX: I63.89 Other cerebral infarction (principal); J69.0 Pneumonitis due to inhalation of food and vomit; J96.01 Acute respiratory failure with hypoxia; G91.8 Other hydrocephalus; I69.351 Hemiplegia and hemiparesis following cerebral infarction affecting right dominant side; E87.0 Hyperosmolality and hypernatremia; K92.0 Hematemesis; K92.2 Gastrointestinal hemorrhage, unspecified; E11.9 Type 2 diabetes mellitus without complications; E78.00 Pure hypercholesterolemia, unspecified; I25.10 Atherosclerotic heart disease of native coronary artery without angina pectoris; R29.701 NIHSS score 1; I16.0 Hypertensive urgency; R94.31 Abnormal electrocardiogram [ECG] [EKG]; I44.0 Atrioventricular block, first degree; I69.320 Aphasia following cerebral infarction; R29.810 Facial weakness; D72.829 Elevated white blood cell count, unspecified; I65.29 Occlusion and stenosis of unspecified carotid artery; I12.9 Hypertensive chronic kidney disease with stage 1 through stage 4 chronic kidney disease, or unspecified chronic kidney disease; E11.22 Type 2 diabetes mellitus with diabetic chronic kidney disease; N18.9 Chronic kidney disease, unspecified; E87.5 Hyperkalemia; R31.9 Hematuria, unspecified; D64.9 Anemia, unspecified; R33.9 Retention of urine, unspecified; R13.10 Dysphagia, unspecified; K59.00 Constipation, unspecified; J98.01 Acute bronchospasm; Z66 Do not resuscitate
CPT/HCPCS: 0241U-QW; 36415; 36600; 70450-TC; 70544-TC; 70551-TC; 71045-TC-FY; 74018-TC-FY; 76775-TC; 76856-TC; 80048; 80053; 81003; 81015; 82272; 82308; 82436; 82570; 82728; 82803; 82962; 83036; 83540; 83550; 83605; 83735; 84100; 84133; 84300; 84484; 85025; 85027; 85610; 85730; 86038; 86850; 86900; 86901; 87040; 87081; 87086; 87324; 87449; 93005; 93010; 93306-TC; 93880-TC; 93971; 94640; 95816; 97116-GP; 97161-GP; 99285-25; G0378; J1644; J3480; P9047